=== PATIENT | female | born 1945 | race Caucasian/White ===

== ENCOUNTER → 2016-11-13 | Day surgery (SDC) | payer OTHER ==
--- NOTE | 2016-11-13 18:03 | IR ---
Imaging-Guided Peripherally Inserted Central Catheter History: Central line access for chemotherapy. Prophylactic Antibiotic: Cefazolin was not ordered and administered for antimicrobial prophylaxis be cause it was not medically necessary for this procedure. VTE Prophylaxis: There is not an order for VTE prophylaxis to be given within 24 hours after procedu re end time because it was not medically necessary for this procedure. Crosscutting Measure: Patient's current list of medications including all known prescriptions, over- the-counters, herbals, and vitamin/mineral/dietary supplements are reviewed. Medications' name, dosa ge, frequency, and route of administration are confirmed. Technique: Following informed consent, the right arm was prepped and draped in sterile fashion. 1% Xy locaine was used for local anesthetic. All elements of maximal sterile barrier technique including cap, mask, sterile gown, sterile gloves, large sterile sheet, hand hygiene, and 2% chlorhexidine for cutaneous antisepsis, followed. Ultrasound evaluation of potential access site was performed. After successfully identifying a patent vessel, ultrasound guidance was used to puncture the vein. A permanent recording was created for the patient's record. Ultrasound transducer was placed in sterile sleeve and used for real-time imaging guidance over steri le gel to enter the basilic vein. 0.018 measuring wire was passed centrally under fluoroscopic contro l. A skin kelechi with scalpel blade was followed by removing the access needle. A 5 Ecuadorean peel-away sh eath was followed by a 5 Ecuadorean single-lumen central catheter, trimmed to 42 cm length.. The tip of the catheter was positioned centrally and the guidewire removed. A single fluoroscopic spot image wa s obtained in inspiration. The hub of the catheter was fixed to the skin using a sterile StatLock adh esive device, and a sterile dressing was applied. The catheter was irrigated. Findings: The tip of the central catheter terminates at the junction of the superior vena cava and th e right atrium. Fluoroscopy: 0.6 minutes, 1 images Impression: 5 Ecuadorean double lumen peripherally inserted central catheter is ready to use.
== END | disposition home or self-care (01) ==
LOC: FIMAGING 12:27
PROVIDERS: ATTEND Internal Medicine Hematology & Oncology
PROC: 02HV33Z Insertion of Infusion Device into Superior Vena Cava, Percutaneous Approach (ICD-10-PCS; principal; 2016-11-13)
DX: C25.1 Malignant neoplasm of body of pancreas (principal)
CPT/HCPCS: 36569; 77001; C1751

== ENCOUNTER 2016-11-24 21:38 | Emergency (ER) | payer OTHER ==
--- NOTE | 2016-11-24 22:01 | EDPHY ---
H & P Stated Complaint: general pain after chemo today head abd and back HPI/ROS: HPI CHIEF COMPLAINT: Abdominal pain, nausea, vomiting HISTORY OF PRESENT ILLNESS: This patient very pleasant 71-year-old female, she has significant past medical history for pancreatic cancer, she is undergoing chemotherapy, she is followed by Dr. Mo. She presents emergency room with pain all over body specifically her head, right arm, abdomen. Patient tells me she has had persistent nausea vomiting today after chemotherapy. She tells me that she got chemotherapy earlier this morning once she got home around noon she started having nausea with persistent vomiting. She does complain of lower abdominal pain. She denies chest pain or shortness of breath. Denies fever. Denies bilious vomiting or hematemesis. She does tell me she is constipated. Past Medical History: Pancreatic CA undergoing chemotherapy Past Surgical History: right arm PICC line Social History: denies use of drugs alcohol tobacco products Family History: noncontributory ROS REVIEW OF SYSTEMS: A comprehensive 10 point review of systems is otherwise negative aside from elements mentioned in the history of present illness. Exam Constitutional appears well nontoxic,triage nursing summary reviewed, vital signs reviewed, awake/alert. Eyes normal conjunctivae and sclera, EOMI, PERRLA. HENT normal inspection, atraumatic, moist mucus membranes, no epistaxis, neck supple/ no meningismus, no raccoon eyes. Respiratory clear to auscultation bilaterally, normal breath sounds, no respiratory distress, no wheezing. Cardiovascular rate normal, regular rhythm, no murmur, no edema, distal pulses normal. Gastrointestinal soft, mild tenderness palpation lower abdomen, no rebound, no guarding, normal bowel sounds, no distension, no pulsatile mass. Genitourinary no CVA tenderness. Musculoskeletal no midline vertebral tenderness, full range of motion, no calf swelling, no tenderness of extremities, no meningismus, good pulses, neurovascularly intact. Skin pink, warm, & dry, no rash, skin atraumatic. Neurologic awake, alert and oriented x 3, AAOx3, moves all 4 extremities equally, motor intact, sensory intact, CN II-XII intact, normal cerebellar, normal vision, normal speech. Psychiatric normal mood/affect. Heme/Lymph/Immune no lymphadenopathy. Differential diagnosis includes but is not limited to and in no particular order : Acute nausea vomiting from chemotherapy, dehydration, electrolyte abnormality , colitis, diverticulitis, intra-abdominal abscess, Bowel obstruction, appendicitis, gallbladder disease, diverticulitis, , enteritis, perforated viscus, gastritis, GERD, esophagitis, urinary tract infection, pyelonephritis, kidney stones Medical Decision Making: This patient will be given a fluid bolus 1 L normal saline, 4 mg Zofran for nausea 1 mg IV Dilaudid. Obtain blood work, she will need a CT scan of her abdomen pelvis with IV contrast. We will access her right PICC line. Re-evaluation: CT scan of the abdomen pelvis with IV contrast The results of the study are this shows pancreatic mass, and 2 liver lesions, constipation no evidence of acute inflammatory process or obstruction The study was read by Dr. Reis I viewed the images myself on the PACS system. 1209: re-examination at this time patient is getting her 2nd L of normal saline. Her pain is improved after IV Dilaudid and nausea improved after Zofran however she did have a little bit more nausea and I have ordered her Phenergan. We will re-evaluate her after fluids. 0218: re-examination at this time she is resting comfortably she is afebrile her vital signs are reviewed and normal. She feels much better after IV fluids. Her pain is well controlled with IV Dilaudid, Zofran and Phenergan for nausea. Blood work and CT been reviewed no indication she has an infection or septic. She is not vomiting here. Her pain all over body is greatly improved. She would like to go home I think this is reasonable she does understand to return to the emergency room if she has any worsening symptoms questions or concerns includes worsening abdominal pain, fever, vomiting. I will allow her to go home with a take-home pack of Phenergan. [address] Nathan Oncology who I did review the case with she is comfortable the patient going home. No further recommendations at this time. Source: Patient - Personal History Current Tetanus/Diphtheria Vaccine: Yes Current Tetanus Diphtheria and Acellular Pertussis (TDAP): Yes Tetanus Vaccine Date: 2008 - Medical/Surgical History Hx Asthma: No Hx Chronic Respiratory Disease: Yes Hx Diabetes: Yes Hx Cardiac Disease: No Hx Renal Disease: No Hx Cirrhosis: No Hx Alcoholism: No Hx HIV/AIDS: No Hx Splenectomy or Spleen Trauma: No Other PMH: DM type 2 / PANCREATIC CANCER/COPD/ SLEEP APNEA/ WITH BIPAP AT HOME PLEURAL EFFUSIONS 2014. HYSTERCTOMY 05/02. R TOTAL KNEE REPLACEMENT 2005. BILAT CATARACT SURG. - Social History Smoking Status: Never smoked Constitutional: Initial Vital Signs Temperature (C) 36.9 C 11/24/16 21:44 Heart Rate 93 11/24/16 21:44 Respiratory Rate 20 11/24/16 21:44 Blood Pressure 119/72 11/24/16 21:44 O2 Sat (%) 91 L 11/24/16 21:44 O2 Delivery Mode Room Air O2 (L/minute) 3 Allergies/Adverse Reactions: No Known Allergies Allergy (Verified 09/27/16 16:04) Home Medications: Medication Instructions Recorded Losartan/Hydrochlorothiazide 1 each PO DAILY 03/31/16 [Losartan-Hctz 100-25 mg Tab] Metoprolol Succinate Xr [Toprol Xl 50 mg PO DAILY 03/31/16 50 mg (*)] Multivitamins [Multivitamin (*)] 1 each PO DAILY 03/31/16 Omeprazole 40 mg PO DAILY 03/31/16 Pravastatin Sodium [Pravachol] 10 mg PO HS 03/31/16 Venlafaxine HCl [Venlafaxine 75MG 75 mg PO BID 03/31/16 (*)] Ondansetron Odt [Zofran Odt 4 mg 4 mg PO Q4PRN PRN #10 tab 09/26/16 (*)] Formoterol Fumarate Dihyd,Micr 1 inh NEB BID 09/27/16 [Formoterol Fumarate] Gabapentin [Neurontin 100 MG (*)] 100 mg PO TID #90 cap 10/01/16 HYDROmorphone HCL [Dilaudid 2 mg 2 - 4 mg PO Q6H PRN #45 tab 10/02/16 (*)] Sennosides 8.6 mg PO DAILY #30 tablet 10/02/16 Insulin Glargine [Lantus 100 20 units SC HS #0 ml 10/03/16 UNITS/ML (*)] morphINE SR [Ms Contin/Oramorph 15 15 mg PO BID #60 tab 10/03/16 mg (*)] Medical Decision Making - Data Points Laboratory Results: Laboratory Results 11/24/16 22:30 11/24/16 22:30 11/25/16 11/24/16 11/24/16 01:35 23:58 22:30 WBC 5.00 10^3/uL (3.80-9.50) RBC 3.28 L 10^6/uL (4.18-5.33) Hgb 9.6 L g/dL (12.6-16.3) Hct 29.6 L % (38.0-47.0) MCV 90.2 fL (81.5-99.8) MCH 29.3 pg (27.9-34.1) MCHC 32.4 g/dL (32.4-36.7) RDW 14.1 % (11.5-15.2) Plt Count 68 L 10^3/uL (150-400) MPV 10.0 fL (8.7-11.7) Neut % (Auto) 92.2 H % (39.3-74.2) Lymph % (Auto) 5.4 L % (15.0-45.0) [place] % (Auto) 1.8 L % (4.5-13.0) Eos % (Auto) 0.0 L % (0.6-7.6) Baso % (Auto) 0.0 L % (0.3-1.7) Nucleat RBC Rel Count 0.0 % (0.0-0.2) Absolute Neuts (auto) 4.61 10^3/uL (1.70-6.50) Absolute Lymphs (auto) 0.27 L 10^3/uL (1.00-3.00) Absolute Monos (auto) 0.09 L 10^3/uL (0.30-0.80) Absolute Eos (auto) 0.00 L 10^3/uL (0.03-0.40) Absolute Basos (auto) 0.00 L 10^3/uL (0.02-0.10) Absolute Nucleated RBC 0.00 10^3/uL (0-0.01) Immature Gran % 0.6 % (0.0-1.1) Immature Gran # 0.03 10^3/uL (0.00-0.10) PT 14.8 SEC (12.0-15.0) INR 1.16 (0.83-1.16) APTT 23.9 SEC (23.0-38.0) VBG Lactic Acid 2.0 D mmol/L 2.6 H mmol/L (0.7-2.1) (0.7-2.1) Sodium 137 mEq/L (134-144) Potassium 4.4 mEq/L (3.5-5.2) Chloride 103 mEq/L (97-110) Carbon Dioxide 24 mEq/l (22-31) Anion Gap 10 mEq/L (8-16) BUN 14 mg/dL (7-23) Creatinine 0.6 mg/dL (0.6-1.0) Estimated GFR > 60 Glucose 296 H mg/dL (70-100) Calcium 8.4 L mg/dL (8.5-10.4) Total Bilirubin 0.6 D mg/dL (0.1-1.4) Conjugated Bilirubin 0.3 mg/dL (0.0-0.5) Unconjugated Bilirubin 0.3 mg/dL (0.0-1.1) AST 45 IU/L (14-46) ALT 45 IU/L (9-52) Alkaline Phosphatase 84 IU/L (38-126) Total Protein 5.6 L g/dL (6.3-8.2) Albumin 3.0 L g/dL (3.5-5.0) Lipase 32.0 IU/L (23-300) Medications Given: Discontinued Medications Hydromorphone HCl (Dilaudid) 1 mg IVP EDNOW ONE Stop: 11/24/16 22:08 Last Admin: 11/24/16 22:25 Dose: 1 mg Hydromorphone HCl (Dilaudid) 0.5 mg IVP EDNOW ONE Stop: 11/25/16 00:11 Last Admin: 11/25/16 00:20 Dose: 0.5 mg Sodium Chloride (Ns) 1,000 mls @ 0 mls/hr IV ONCE ONE PRN Reason: Wide Open Stop: 11/24/16 22:08 Last Admin: 11/24/16 22:25 Dose: 1,000 mls Sodium Chloride (Ns) 1,000 mls @ 0 mls/hr IV ONCE ONE PRN Reason: Wide Open Stop: 11/24/16 23:48 Last Admin: 11/25/16 00:29 Dose: 1,000 mls Ondansetron HCl (Zofran) 4 mg IVP EDNOW ONE Stop: 11/24/16 22:08 Last Admin: 11/24/16 22:25 Dose: 4 mg Promethazine HCl (Phenergan Injection) 12.5 mg IVP ONCE ONE Stop: 11/25/16 00:03 Last Admin: 11/25/16 00:03 Dose: 12.5 mg Departure - Departure Disposition: Home, Routine, Self-Care Clinical Impression: Nausea and vomiting Qualifiers: Vomiting type: unspecified Vomiting Intractability: non-intractable Qualifier Code: (R11.2) Nausea with vomiting, unspecified Condition: Good Instructions: Dehydration (ED), Acute Nausea and Vomiting (ED) Additional Instructions: 1. return emergency room immediately if he develops worsening symptoms includes abdominal pain, fever, vomiting. Referrals: Jenny Moon PA [Primary Care Provider] - As per Instructions
[2016-11-24] MEDS ORDERED: HYDROmorphONE/DILAUDID 1 MG/ML SYR IVP ONE (22:07)
[2016-11-24] MEDS ORDERED: NS 1,000 ML IV ONE ×2 (22:07→23:47)
[2016-11-24] MEDS ORDERED: ONDANSETRON 4 MG/2 ML VIAL IVP ONE (22:07)
[2016-11-24 22:44] LABS: % IMMATURE GRANULYOCYTES 0.6 % (0.0-1.1); ABSOLUTE IMMATURE GRANULOCYTES 0.03 10^3/uL (0.00-0.10); ADD DIFF? NO; ADD MORPH? NO; ADD SCAN? NO; ATYPICAL LYMPHOCYTE FLAG 0 (0-99); FRAGMENT RBC FLAG 60 (0-99); HEMATOCRIT 29.6 % (38.0-47.0); HEMOGLOBIN 9.6 g/dL (12.6-16.3); LEFT SHIFT FLG 80 (0-99); LIPEMIA HEMOLYSIS FLAG 80 (0-99); MEAN CELL HEMOGLOBIN 29.3 pg (27.9-34.1); MEAN CELL HEMOGLOBIN CONCENTR. 32.4 g/dL (32.4-36.7); MEAN CELL VOLUME 90.2 fL (81.5-99.8); PLATELET CLUMPS FLAG 0 (0-99); PLATELET COUNT 68 10^3/uL (150-400); RED BLOOD CELL COUNT 3.28 10^6/uL (4.18-5.33); RED CELL DISTRIBUTION WIDTH 14.1 % (11.5-15.2)
[2016-11-24 22:52] LABS: APTT 23.9 SEC (23.0-38.0); INR 1.16 (0.83-1.16); PROTIME(PATIENT) 14.8 SEC (12.0-15.0)
[2016-11-24 22:57] LABS: ALANINE AMINOTRANSFERASE 45 IU/L (9-52); ALKALINE PHOSPHATASE 84 IU/L (38-126); ANION GAP 10 mEq/L (8-16); ASPARTATE AMINOTRANSFERASE 45 IU/L (14-46); BILIRUBIN,TOTAL 0.6 mg/dL (0.1-1.4); BILIRUBIN-CONJUGATED 0.3 mg/dL (0.0-0.5); BILIRUBIN-UNCONJUGATED 0.3 mg/dL (0.0-1.1); CALCIUM 8.4 mg/dL (8.5-10.4); CARBON DIOXIDE 24 mEq/l (22-31); CHLORIDE 103 mEq/L (97-110); CREATININE 0.6 mg/dL (0.6-1.0); GLOMERULAR FILTRATION RATE > 60; GLUCOSE 296 mg/dL (70-100); POTASSIUM 4.4 mEq/L (3.5-5.2); SODIUM 137 mEq/L (134-144); TOTAL PROTEIN 5.6 g/dL (6.3-8.2)
[2016-11-24] MEDS ORDERED: IOPAMIDOL (ISOVUE-300) 100 ML BTL IV ONE (23:23)
[2016-11-24] MEDS ORDERED: PROMETHAZINE HCL 25 MG/ML INJ ONE (23:45)
--- NOTE | 2016-11-24 23:57 | CT ---
CT Scan of the Abdomen and Pelvis (With Contrast) at 2331 hours History: Pancreatic cancer with worsening abdominal pain. Comparison: CT September 24, 2016 Technique: Axial computed tomographic images of the abdomen and pelvis were obtained with the unevent ful intravenous administration of 90 mL Isovue-300 contrast. No oral or rectal contrast which limits the study. Dose reduction techniques were utilized. CT Abdomen Findings: Lung bases: Interstitial lung disease at the lung bases without pleural effusion. Liver: 2 hepatic masses in the medial segment of the left lobe measuring 4 x 3 cm image 81 of series 4 and 2.2 x 2.2 cm consistent with metastasis. Biliary system: No obstruction. Spleen: Normal. Pancreas: Heterogenous hypodense pancreatic head mass measuring 4.5 x 4 cm increased in size since pr evious study, previously measuring 3.1 x 2.9 cm.. Pancreatic ductal dilation again noted. Adrenals: Normal. Kidneys: No obstruction or solid masses.. Abdominal Aorta: Moderate atherosclerotic aorta and iliac arteries without aneurysm. No bowel obstruction, ascites, or significant retroperitoneal lymphadenopathy. CT Pelvis Findings: Moderate stool throughout the colon consistent with constipation. No pelvic fluid collections. Degenerative lumbar spine without definite destructive osseous lesions. L4-L5 moderate central canal stenosis secondary to degenerative grade 1 anterolisthesis and bilateral facet arthropa thy. Impression: 1. Enlarging pancreatic head mass consistent with patient's known malignancy. 2. Enlarging hepatic metastasis. 3. Constipation. 4. Degenerative lumbar spine. Findings and recommendations discussed with Emergency Department physician, Gaston Roland MD at 2 350 hour, 11/24/2016. Final report concurs with initial preliminary interpretation.
[2016-11-25] MEDS ORDERED: PROMETHAZINE HCL 25 MG/ML INJ IVP ONE (00:02)
[2016-11-25] MEDS ORDERED: HYDROmorphONE/DILAUDID 1 MG/ML SYR IVP ONE (00:10)
[2016-11-25 00:38] VITALS: TEMP 99.3
[2016-11-25] MEDS ORDERED: PROMETHAZINE 25 MG PREPACK #4 BTL TAKEHOME ONE (02:20)
[2016-11-25 03:18] VITALS: BP 126/61; PULSE 74; RESP 18; O2SAT 93
[2016-11-25] MEDS ORDERED: HEPARIN PRESERV FREE 1 UNIT/1 ML 5 ML SYR IVP SCH (03:30)
== END 2016-11-25 03:16 | disposition home or self-care (01) ==
DX: R11.2 Nausea with vomiting, unspecified (principal); C25.9 Malignant neoplasm of pancreas, unspecified; E11.9 Type 2 diabetes mellitus without complications; J44.9 Chronic obstructive pulmonary disease, unspecified; Z79.4 Long term (current) use of insulin; Z92.21 Personal history of antineoplastic chemotherapy
CPT/HCPCS: 74177; 96361; 96374; 96375; 96376; 99285; J1170; J2405; J2550; Q9967

== ENCOUNTER 2017-01-08 17:20 | Inpatient (IN) | payer OTHER ==
--- NOTE | 2017-01-08 17:45 | EDPHY ---
H & P Stated Complaint: Sent to ED for eval ?mesenteric clot (CT done today) Time Seen by Provider: 01/08/17 17:40 HPI/ROS: CHIEF COMPLAINT: Blood clot HISTORY OF PRESENT ILLNESS: The patient is a 71 year old female with history of metastatic pancreatic cancer, who was sent here for blood clot found on CT. The patient had chemotherapy done 4 days ago. After the treatment she developed abdominal pain. She saw Dr. Babin and had a CT abdomen done that showed a nonocclusive clot in her superior mesenteric vein as well as a clot in the left common femoral vein. The patient reports pain to the left side of her abdomen that radiates to the center and into her breasts. This pain has increasingly worsened over the last 2 weeks. She has associated vomiting. She additionally notes pain with urination. She has recently had cold-like symptoms and seems to have an ongoing cough. She denies shortness of breath, palpitations, fever, or headache. REVIEW OF SYSTEMS: Aside from elements discussed in the HPI, a comprehensive 10-point review of systems was reviewed and is negative. PAST MEDICAL HISTORY: DM type II, Pancreatic cancer, COPD, Sleep apnea. PSH: Hysterectomy, Right total knee replacement, Bilateral cataract surgery SOCIAL HISTORY: No recent alcohol. VITAL SIGNS: Reviewed by me GENERAL: Slightly pale, complaining of abdominal pain. HEENT: Atraumatic. Eyes: No icterus, no injection. Mouth: dry mucous membranes. No erythema or lesions. Neck: supple with no adenopathy. LUNGS: Scattered wheezes. Coarse breath sounds. CARDIAC: Tachycardic,regular rhythm, no rubs, murmurs or gallops. ABDOMEN: Diffuse tenderness, worse in the upper quadrants. No guarding or rebound. BACK: No CVA tenderness. EXTREMITIES: Left foot in boot for compound fracture. Right lower extremity is normal. NEURO: Alert and oriented, grossly nonfocal. SKIN: Pale. Warm and dry. PSYCHIATRIC: Normal mentation, no agitation. Portions of this note were transcribed by a medical appointment clerk. I personally performed a history, physical exam, medical decision making, and confirmed accuracy of information the transcribed note. Source: Patient - Personal History Current Tetanus Diphtheria and Acellular Pertussis (TDAP): Yes Tetanus Vaccine Date: 2008 - Medical/Surgical History Hx Asthma: No Hx Chronic Respiratory Disease: Yes Hx Diabetes: Yes Hx Cardiac Disease: No Hx Renal Disease: No Hx Cirrhosis: No Hx Alcoholism: No Hx HIV/AIDS: No Hx Splenectomy or Spleen Trauma: No Other PMH: DM type 2 / PANCREATIC CANCER/COPD/ SLEEP APNEA/ WITH BIPAP AT HOME PLEURAL EFFUSIONS 2014. HYSTERCTOMY 05/02. R TOTAL KNEE REPLACEMENT 2005. BILAT CATARACT SURG. - Social History Smoking Status: Never smoked Constitutional: Initial Vital Signs Temperature (C) 36.4 C 01/08/17 17:22 Heart Rate 104 H 01/08/17 17:22 Respiratory Rate 20 01/08/17 17:22 Blood Pressure 130/70 H 01/08/17 17:22 O2 Sat (%) 91 L 01/08/17 17:22 O2 Delivery Mode Nasal Cannula O2 (L/minute) 4 Allergies/Adverse Reactions: No Known Allergies Allergy (Verified 09/27/16 16:04) Home Medications: Medication Instructions Recorded Metoprolol Succinate Xr [Toprol Xl 50 mg PO DAILY 03/31/16 50 mg (*)] Multivitamins [Multivitamin (*)] 1 each PO DAILY 03/31/16 Omeprazole 40 mg PO DAILY 03/31/16 Pravastatin Sodium [Pravachol] 10 mg PO HS 03/31/16 Venlafaxine HCl [Venlafaxine 75MG 75 mg PO BID 03/31/16 (*)] HYDROmorphone HCL [Dilaudid 2 mg 2 - 4 mg PO Q6H PRN #45 tab 10/02/16 (*)] Insulin Glargine [Lantus 100 20 units SC HS #0 ml 10/03/16 UNITS/ML (*)] Acetaminophen [Tylenol 325mg (*)] 325 mg PO Q6 PRN 01/08/17 Gabapentin [Neurontin 300 MG (*)] 300 mg PO TID 01/08/17 Ondansetron Odt [Zofran Odt 4 mg 8 mg PO Q4PRN PRN 01/08/17 (*)] Sennosides 8.6 mg PO DAILY PRN 01/08/17 morphINE SR [Ms Contin/Oramorph 15 30 mg PO TID 01/08/17 mg (*)] Medical Decision Making - Diagnostics EKG Interpretation: The 12 lead EKG was interpreted by myself. See tracemaster for interpretation: Nonspecific T wave changes in anterior leads. ST flattening in V2. New from previously. ED Course/Re-evaluation: I discussed the patient's CT scan with Dr. Vieyra and Dr. Dover. There is no clot in the visceral arteries. Positive thrombus in the left common femoral vein. Small nonocclusive clot in the superior mesenteric vein. Patient's labs are largely unremarkable. Patient is continuing to have abdominal pain. Plan to admit. 7:40 p.m.: I spoke to the hospitalist, the patient will be admitted to Dr. Castillo. 8:25 p.m.: The patient's pain has increased. I gave her 1mg Dilaudid IV. Differential Diagnosis: Differential diagnoses for the patient's symptom complex was considered including but not limited to new metastatic pancreatic cancer disease, pancreatitis, pancreatic abscess, bowel obstruction, superior mesenteric artery thrombus, deep venous thrombus, mesenteric vein thrombus. - Data Points Medications Given: Discontinued Medications Hydromorphone HCl (Dilaudid) 1 mg IVP ONCE ONE Stop: 01/08/17 20:22 Last Admin: 01/08/17 20:35 Dose: 1 mg Departure - Departure Disposition: [facility] Inpatient Acute Clinical Impression: Deep vein blood clot of left lower extremity Qualifiers: Affected thrombotic vein of extremity: femoral Chronicity: acute Qualified Code (s): I82.412 - Acute embolism and thrombosis of left femoral vein Abdominal pain Qualifiers: Abdominal location: upper abdomen, unspecified Qualified Code(s): R10.10 - Upper abdominal pain, unspecified Pancreatic cancer Qualifiers: Pancreatic malignancy location: unspecified Qualified Code(s): C25.9 - Malignant neoplasm of pancreas, unspecified Condition: Fair Report Scribed for: Lyn Gomez Report Scribed by: Zoraida Bui Date of Report: 01/08/17 Time of Report: 17:45
--- NOTE | 2017-01-08 17:50 | CPEKG ---
Heart Rate: 101 RR Interval: 594 P-R Interval: 120 QRSD Interval: 78 QT Interval: 396 QTC Interval: 514 P [place]: 74 QRS [place]: 29 T Wave [place]: -47 EKG Severity - ABNORMAL ECG - EKG Impression: SINUS TACHYCARDIA EKG Impression: NONSPECIFIC T ABNORMALITIES, ANTERIOR LEADS EKG Impression: PROLONGED QT INTERVAL Electronically Signed By: Lyn Gomez 08-Jan-2017 22:39:12
[2017-01-08 19:27] LABS: % IMMATURE GRANULYOCYTES 0.4 % (0.0-1.1); ABSOLUTE IMMATURE GRANULOCYTES 0.03 10^3/uL (0.00-0.10); ADD DIFF? NO; ADD MORPH? YES; ADD SCAN? NO; ATYPICAL LYMPHOCYTE FLAG 0 (0-99); FRAGMENT RBC FLAG 30 (0-99); HEMATOCRIT 28.1 % (38.0-47.0); HEMOGLOBIN 8.7 g/dL (12.6-16.3); LEFT SHIFT FLG 0 (0-99); LIPEMIA HEMOLYSIS FLAG 80 (0-99); MEAN CELL HEMOGLOBIN 28.3 pg (27.9-34.1); MEAN CELL VOLUME 91.5 fL (81.5-99.8); MEAN PLATELET VOLUME 9.7 fL (8.7-11.7); PLATELET CLUMPS FLAG 0 (0-99); PLATELET COUNT 288 10^3/uL (150-400); RED BLOOD CELL COUNT 3.07 10^6/uL (4.18-5.33)
[2017-01-08 19:51] LABS: INR 1.25 (0.83-1.16); PROTIME(PATIENT) 15.7 SEC (12.0-15.0)
[2017-01-08 19:54] LABS: ALANINE AMINOTRANSFERASE 36 IU/L (9-52); ALBUMIN 2.8 g/dL (3.5-5.0); ALKALINE PHOSPHATASE 136 IU/L (38-126); ANION GAP 8 mEq/L (8-16); ASPARTATE AMINOTRANSFERASE 38 IU/L (14-46); BILIRUBIN,TOTAL 0.6 mg/dL (0.1-1.4); BILIRUBIN-CONJUGATED 0.4 mg/dL (0.0-0.5); BILIRUBIN-UNCONJUGATED 0.2 mg/dL (0.0-1.1); CARBON DIOXIDE 27 mEq/l (22-31); CHLORIDE 99 mEq/L (97-110); CREATININE 0.5 mg/dL (0.6-1.0); GLOMERULAR FILTRATION RATE > 60; GLUCOSE 109 mg/dL (70-100); POTASSIUM 4.1 mEq/L (3.5-5.2); SODIUM 134 mEq/L (134-144); TOTAL PROTEIN 5.4 g/dL (6.3-8.2)
[2017-01-08 20:05] LABS: TROPONIN I < 0.012 ng/mL (0-0.034)
[2017-01-08 20:07] LABS: ELLIPTOCYTES 1+; HYPOCHROMIA 2+; MACROCYTES 1+; PLATELET ESTIMATE ADEQUATE (ADEQ); SCHISTOCYTES 2+
[2017-01-08] MEDS ORDERED: HYDROmorphONE/DILAUDID 2 MG/ML INJ IVP ONE (20:21)
[2017-01-08] MEDS ORDERED: SENNOSIDES 1 TAB PO PRN (21:46)
[2017-01-08] MEDS ORDERED: ONDANSETRON DISINTEGRATING 4 MG TAB PO PRN (21:46)
[2017-01-08] MEDS ORDERED: ACETAMINOPHEN 325 MG TAB PO PRN (21:48)
[2017-01-08] MEDS ORDERED: ZOLPIDEM TARTRATE 5 MG TAB PO PRN (21:48)
[2017-01-08] MEDS: morphINE SR 30 MG TAB PO SCH (22:13)
[2017-01-08] MEDS: GABAPENTIN 300 MG CAP PO SCH (22:13)
[2017-01-08] MEDS: HYDROmorphONE/DILAUDID 1 MG/ML SYR IVP PRN (22:26)
[2017-01-08] MEDS: ENOXAPARIN 80 MG/0.8 ML SYR SC SCH (22:28)
[2017-01-08] MEDS ORDERED: LOPERAMIDE HCL 2 MG CAP PO PRN (22:55)
[2017-01-08] MEDS ORDERED: DIPHENOXYLATE/ATROPINE LOMOTIL 1 TAB PO PRN (22:55)
[2017-01-08] MEDS: INSULIN GLARGINE 100 UNITS/ML SYRINGE SC SCH (23:06)
[2017-01-08] MEDS: ALTEPLASE 2 MG VIAL IVP PRN ×2 (23:06→23:08)
--- NOTE | 2017-01-08 23:50 | GHP ---
[f rep st] HISTORY AND PHYSICAL DATE OF ADMISSION: 01/08/2017 CHIEF COMPLAINT: Abdominal pain. HISTORY: The patient is 71-year-old woman with known metastatic pancreatic cancer. She was sent to the hospital from oncology clinic at this time with worsening abdominal pain. The patient has had some ongoing pain for a while, but just in the last week the pain has significantly increased on a d aily basis, finally getting to the point where she could not tolerate it. She has increased her patti n medicines, but without any improvement in control of her pain in the meantime. The patient denies nausea or vomiting, diarrhea or constipation. She denies any fever symptoms or urinary symptoms of concern. Her syndrome has not involved any chest pain or shortness of breath. REVIEW OF SYSTEMS: The patient has received chemotherapy earlier this week for her cancer, and as u sual, her stools are getting looser and she expects for a couple of days that she will have more ko quent stools. She has some other minor side effects from chemotherapy, but her review of systems is otherwise unrevealing with 10 systems reviewed. PAST MEDICAL HISTORY: Includes the pancreatic cancer diagnosed in September 2016, diabetes, sleep ap mahamed, hypertension. FAMILY MEDICAL HISTORY: Negative for any cancers. SOCIAL HISTORY: The patient lives in [place]. She uses no tobacco or alcohol. She has a daughter who is here with her now. MEDICATIONS: Home medicine list has been reconciled by the pharmacist, and I have reviewed this lis t and ordered appropriate medications. PHYSICAL EXAMINATION: GENERAL: The patient is wide awake, alert, attentive, talkative, normal ment ation. SKIN: Her skin is pale, but otherwise warm and dry. HEENT: Unremarkable. NECK: Has no m ass, adenopathy or goiter. RESPIRATIONS: Not labored, lungs are clear. HEART: Regular without fr iction rub or gallop. There is a 1/6 systolic murmur, crescendo decrescendo in nature. ABDOMEN: S oft and mildly distended without any palpable abnormalities. There is diffuse tenderness without gu arding or rebound. EXTREMITIES: Her upper and lower extremities are all warm and well perfused. H er right leg is in a cast from a recent ankle fracture. NEURO: The mental status is good. Speech and language function good. No focal weakness anywhere. LABORATORY DATA: So far includes a white blood count of 7000, hemoglobin 8.7 and platelets 288,000. Normal basic metabolic panel. On liver panel, she has an alk phos of 136, but normal transaminase s and bilirubin. Her albumin is low at 2.8. Troponin is normal. A CT scan of the abdomen was done at the [facility] earlier. This was reviewed he re today by our radiologist, and the findings include most specifically acute deep venous thrombosis in the left femoral vein and left superior mesenteric vein. The images are not available for me to review at this time. IMPRESSION: Acute abdominal pain. It is unclear whether this abdominal pain is related to her deep venous thromboses, or more likely due to her impending diarrheal illness after her recent chemother apy, or other related factors. She has no focal tenderness, no guarding or rebound, and apparently no inflammatory changes or abscesses on her CT scan done at [facility] today. At this point, it is reasonable to go ahead and treat her deep venous thromboses as this is necessary a nyway and see if this leads to any notable improvement. Additionally, will treat her chemotherapy r elated bowel symptoms. Will watch closely for any signs of developing, but this does not appear to be present at this time. PLANS: 1. Admit to the hospital. 2. Anticoagulation with Lovenox which is standard for cancer patients. 3. Management of her diarrhea with antidiarrheals and hydration as necessary. 4. DVT prophylaxis will be handled by her anticoagulation as above. /[id number]/MODL
[2017-01-09] MEDS: NS 1,000 ML IV SCH ×2 (03:00→16:43)
[2017-01-09] MEDS: HYDROmorphONE/DILAUDID 1 MG/ML SYR IVP PRN (05:10)
[2017-01-09 05:14] LABS: % IMMATURE GRANULYOCYTES 0.5 % (0.0-1.1); ABSOLUTE IMMATURE GRANULOCYTES 0.04 10^3/uL (0.00-0.10); ADD DIFF? NO; ADD MORPH? YES; ADD SCAN? NO; ATYPICAL LYMPHOCYTE FLAG 0 (0-99); FRAGMENT RBC FLAG 20 (0-99); HEMOGLOBIN 8.5 g/dL (12.6-16.3); LEFT SHIFT FLG 0 (0-99); LIPEMIA HEMOLYSIS FLAG 80 (0-99); MEAN CELL HEMOGLOBIN 29.1 pg (27.9-34.1); MEAN CELL HEMOGLOBIN CONCENTR. 31.5 g/dL (32.4-36.7); MEAN CELL VOLUME 92.5 fL (81.5-99.8); MEAN PLATELET VOLUME 9.4 fL (8.7-11.7); PLATELET CLUMPS FLAG 0 (0-99); PLATELET COUNT 284 10^3/uL (150-400); RED BLOOD CELL COUNT 2.92 10^6/uL (4.18-5.33)
[2017-01-09 05:37] LABS: RED CELL DISTRIBUTION WIDTH 21.9 % (11.5-15.2)
[2017-01-09 05:45] LABS: ANION GAP 8 mEq/L (8-16); CALCIUM 8.8 mg/dL (8.5-10.4); CARBON DIOXIDE 23 mEq/l (22-31); CHLORIDE 103 mEq/L (97-110); CREATININE 0.5 mg/dL (0.6-1.0); GLOMERULAR FILTRATION RATE > 60; GLUCOSE 85 mg/dL (70-100); SODIUM 134 mEq/L (134-144)
[2017-01-09 07:11] LABS: HYPOCHROMIA 1+; MACROCYTES 1+; POLYCHROMASIA 1+
[2017-01-09 07:12] LABS: ELLIPTOCYTES 1+; PLATELET ESTIMATE ADEQUATE (ADEQ)
[2017-01-09] MEDS ORDERED: ENOXAPARIN 40 MG/0.4 ML SYR SC SCH (09:00)
[2017-01-09] MEDS: MULTIVITAMINS 1 EACH TAB PO SCH (09:34)
[2017-01-09] MEDS: GABAPENTIN 300 MG CAP PO SCH ×3 (09:34→21:36)
[2017-01-09] MEDS: METOPROLOL SUCCINATE XR 50 MG TAB PO SCH (09:34)
[2017-01-09] MEDS: VENLAFAXINE HCL 75 MG TAB PO SCH ×2 (09:35→20:49)
[2017-01-09] MEDS: PANTOPRAZOLE SODIUM 40 MG TAB PO SCH (09:35)
[2017-01-09] MEDS: ENOXAPARIN 80 MG/0.8 ML SYR SC SCH (09:35)
[2017-01-09] MEDS: morphINE SR 30 MG TAB PO SCH ×3 (09:35→21:37)
[2017-01-09] MEDS: HYDROmorphONE/DILAUDID 4 MG TAB PO PRN ×2 (12:03→17:53)
--- NOTE | 2017-01-09 12:51 | GCON ---
[f rep st] CONSULTATION HEME-ONC CONSULTATION REASON FOR ADMISSION: Worsening abdominal pain. HISTORY OF PRESENT ILLNESS: The patient was admitted yesterday with a history of known metastatic p ancreatic cancer with liver metastases, who had much worsening abdominal pain. She was sent to the emergency room for evaluation; however, she had a CAT scan performed in the clinic on 01/08 which re vealed that she has the new onset of mesenteric vein thrombosis. For that reason, she was admitted for anticoagulation and management of the pain. This morning the pain is improved, but she does hav e some ongoing problems with nausea and vomiting. The patient's last CT reveals a 24 x 21 cm liver metastasis in the right lobe of the liver and a 52 x 51 cm mass in the body of the pancreas, but the re is a clear-cut mesenteric vein thrombosis on the scan. This film compared to the CT scan at [facility] on 11/23 revealed that the scan was 31 x 26 cm in the right lobe of the liver and the mass in the head of the pancreas is around 57 x 35 mm. So all told there is not any dramat ic change in the mass in either way, and so this is probably just a complication of the cancer with a mesenteric vein thrombosis. The patient, prior to diagnosis, was living at her home in [place], but [facility] [place]. The patient's daughter works as a veterinary practitioner. She is also complaining of some vomiting and early satiety, probably related to the mass. She was admitted in October along with a fracture in her left foot from a fall, not due to a periphe ral neuropathy but related to just tripping and required surgery. She still has a cast on and is sl owly recovering. Prior to this, she has had some comorbidities which are significant. She has had type 2 diabetes. She has had poor physical conditioning and obesity. She is a never smoker. She had prior surgery with cataract surgery, T and A, appendectomy, a total knee replacement, a ANGELES with BSO. FAMILY HISTORY: Really unremarkable. Her father at 75 of an OH. Her mother at age 74 of CHF but had a diagnosis "ovarian cancer" at age 39. The patient has 4 siblings. One sister a t age 61 of breast cancer and also had ovarian cancer. Another sister was born in 1951 and is healt hy. Brother born in is healthy and another brother born in has diabetes. She is s munira 1990 and has 4 children (names in chart). 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 She is a nondrin ker and nonsmoker. REVIEW OF SYSTEMS: Shows her weight is relatively stable. CLINICAL EXAM: Unremarkable. She is smiling and appears to be improved from previous reports. She has no scleral icterus. No cervical adenopathy. The lungs are clear to P and A. CV: S1 normal, S2 normally split. There is no S3, S4 or murmur. Her abdomen today is mildly tender in the epigast rium. The breast exam is free of focal masses, and there is no extremity edema or calf tenderness. ALLERGIES: I should mention that she has no known drug allergies. MEDICATIONS: Prior to admission, she had Dilaudid for pain, gabapentin 300 mg p.o. three times dutch y for peripheral neuropathy, MS Contin 30 mg q.12 hours. She also had ondansetron 8 mg p.o. p.r.n. She also is on 20 units of insulin, 1000 mg p.o. b.i.d. of metformin, and also metoprolol 50 mg gio ly for hypertension. Pravastatin was at a dose of 10 mg daily, stool softeners, and venlafaxine 75 mg p.o. b.i.d. ASSESSMENT: Mesenteric vein thrombosis. RECOMMENDATIONS: I am recommending that she be treated on rivaroxaban, which is Xarelto, initially at 15 mg p.o. b.i.d. and then 20 mg daily after 3 weeks. We will discuss her further treatment of h er cancer as an outpatient. /[id number]/MODL
--- NOTE | 2017-01-09 16:18 | HOSPPROG ---
Hospitalist Progress Note Assessment/Plan: 71 yo F w metastatic pancreatic CA here w abdominal pain, mesenteric vein thrombosis mesenteric vein thrombosis: started on NoAC nontender exam abdominal pain: reasonably attributable to above ekg w no ischemia pancreatic CA: outpt follow up for chemotherapy proph: anticoagulated diarrhea: mild, 2/2 chemo follow dispo: inpatient Subjective: case d/w dr abdalla. ekg (interp by me)- no ischemic changes Objective: Vital Signs Temp Pulse Resp BP Pulse Ox 36.6 C 96 18 154/77 H 99 01/09/17 15:59 01/09/17 15:59 01/09/17 15:59 01/09/17 15:59 01/09/17 15:59 Laboratory Results 01/09/17 05:00 01/09/17 05:00 01/08/17 01/09/17 01/10/17 05:59 05:59 05:59 Intake Total 800 Output Total 501 350 Balance 299 -350 PT 15.7 SEC (12.0-15.0) H 01/08/17 19:16 INR 1.25 (0.83-1.16) H 01/08/17 19:16 - Physical Exam Constitutional: no apparent distress, chronically ill appearing Eyes: PERRL, anicteric sclera Ears, Nose, Mouth, Throat: moist mucous membranes, hearing normal Cardiovascular: regular rate and rhythym, no murmur, rub, or gallop, No tachycardia Respiratory: no respiratory distress, no rales or rhonchi Gastrointestinal: normoactive bowel sounds, soft, non-tender abdomen, No guarding, No rebound Genitourinary: no bladder fullness, No dempsey in urethra Skin: warm, normal color Musculoskeletal: full muscle strength, no muscle tenderness Neurologic: AAOx3, sensation intact bilaterally Psychiatric: interacting appropriately Lymph, Heme, Immunologic: no cervical LAD ICD10 Worksheet Patient Problems: Problems Problem Status Onset Abdominal pain Acute Deep vein blood clot of left lower extremity Acute Pancreatic cancer Acute Abdominal pain Acute Pancreatic cancer Acute Postop check Acute Urinary tract infection Acute
[2017-01-09] MEDS: METOCLOPRAMIDE 10 MG TAB PO SCH ×3 (16:34→20:49)
[2017-01-09] MEDS: RIVAROXABAN 15 MG TAB PO SCH (17:54)
[2017-01-09] MEDS: INSULIN GLARGINE 100 UNITS/ML SYRINGE SC SCH (20:50)
[2017-01-09] MEDS ORDERED: PRAVASTATIN SODIUM 10 MG TAB PO SCH (21:00)
[2017-01-10] MEDS: HYDROmorphONE/DILAUDID 4 MG TAB PO PRN ×2 (03:59→10:20)
[2017-01-10] MEDS: NS 1,000 ML IV SCH (04:01)
[2017-01-10] MEDS: METOCLOPRAMIDE 10 MG TAB PO SCH ×2 (08:04→11:02)
[2017-01-10] MEDS: METOPROLOL SUCCINATE XR 50 MG TAB PO SCH (08:04)
[2017-01-10] MEDS: GABAPENTIN 300 MG CAP PO SCH (08:04)
[2017-01-10] MEDS: RIVAROXABAN 15 MG TAB PO SCH (08:04)
[2017-01-10] MEDS: VENLAFAXINE HCL 75 MG TAB PO SCH (08:05)
[2017-01-10] MEDS: morphINE SR 30 MG TAB PO SCH (08:05)
[2017-01-10] MEDS: PANTOPRAZOLE SODIUM 40 MG TAB PO SCH (08:05)
[2017-01-10] MEDS: MULTIVITAMINS 1 EACH TAB PO SCH (08:05)
--- NOTE | 2017-01-10 08:44 | SOAPPROG ---
SOAP Progress Note Assessment/Plan: Assessment: 1. Metastatic pancreatic cancer: She has stable disease on Abraxane/gem. She is doing ok. 2. 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 She will be on xeralto 15 mg BID for 3 weeks and then 20 mg daily ad infinitum. She was due for chemo tomorrow. We'll delay till of this week. No N/V. Looks ok. home today? Plan: 01/10/17 08:36 Subjective: Rachel is a 71 yo F with metastatic pancreatic cancer. She is DNR. she came in with abd pain due to mesenteric vein thrombosis. she is better today. no n/v Objective: Vital Signs Temp Pulse Resp BP Pulse Ox 36.8 C 98 19 136/81 H 94 01/10/17 07:07 01/10/17 08:04 01/10/17 07:07 01/10/17 08:04 01/10/17 07:07 Laboratory Results 01/09/17 05:00 01/09/17 05:00 01/09/17 01/10/17 01/11/17 05:59 05:59 05:59 Intake Total 800 2308 Output Total 501 1500 900 Balance 299 808 -900 PT 15.7 SEC (12.0-15.0) H 01/08/17 19:16 INR 1.25 (0.83-1.16) H 01/08/17 19:16 Alert and pleasant Neck neg' Lungs clear CVS neg Abd soft ICD10 Worksheet Patient Problems: Problems Problem Status Onset Postop check Acute Pancreatic cancer Acute Abdominal pain Acute Urinary tract infection Acute Deep vein blood clot of left lower extremity Acute Abdominal pain Acute Pancreatic cancer Acute
[2017-01-10 11:44] VITALS: BP 166/83; PULSE 102; RESP 18; TEMP 98.6; O2SAT 98
--- NOTE | 2017-01-10 13:00 | HOSPPROG ---
Hospitalist Progress Note Assessment/Plan: 71 yo F w metastatic pancreatic CA here w abdominal pain, mesenteric vein thrombosis mesenteric vein thrombosis: started on NoAC nontender exam abdominal pain: reasonably attributable to above ekg w no ischemia pancreatic CA: outpt follow up for chemotherapy proph: anticoagulated diarrhea: mild, 2/2 chemo follow dispo: inpatient > 30 minutes on dc Subjective: feels well. amenable to dc. case d/w dr abdalla Objective: Vital Signs Temp Pulse Resp BP Pulse Ox 37 C 102 H 18 166/83 H 98 01/10/17 11:42 01/10/17 11:42 01/10/17 11:42 01/10/17 11:42 01/10/17 11:42 Laboratory Results 01/09/17 05:00 01/09/17 05:00 01/09/17 01/10/17 01/11/17 05:59 05:59 05:59 Intake Total 800 2308 Output Total 501 1500 1600 Balance 299 808 -1600 PT 15.7 SEC (12.0-15.0) H 01/08/17 19:16 INR 1.25 (0.83-1.16) H 01/08/17 19:16 - Physical Exam Constitutional: no apparent distress, appears nourished Eyes: PERRL, anicteric sclera Ears, Nose, Mouth, Throat: moist mucous membranes, hearing normal Cardiovascular: regular rate and rhythym, no murmur, rub, or gallop Respiratory: no respiratory distress, no rales or rhonchi Gastrointestinal: soft, non-tender abdomen, No guarding, No rebound Genitourinary: No dempsey in urethra Skin: warm, normal color Musculoskeletal: full muscle strength, no muscle tenderness, normal joint ROM Neurologic: AAOx3 ICD10 Worksheet Patient Problems: Problems Problem Status Onset Abdominal pain Acute Deep vein blood clot of left lower extremity Acute Pancreatic cancer Acute Abdominal pain Acute Pancreatic cancer Acute Postop check Acute Urinary tract infection Acute
--- NOTE | 2017-01-10 15:29 | GDS ---
[f rep st] DISCHARGE SUMMARY DISCHARGE DIAGNOSES: 1. Metastatic pancreatic cancer. 2. Deep vein thrombosis in the left femoral vein, left superior mesenteric vein. 3. Chronic hypoxia, on home oxygen. 4. Diabetes. 5. Sleep apnea. CONSULTATION THIS ADMISSION: Oncology. HOSPITAL COURSE: Please see admission history and physical. The patient was admitted, was initiated on novel anticoagulation in the form of Xarelto. She tolera annamaria this well. She was improving. She was eating well. She had a soft abdominal exam. She was ne ither tachycardiac nor febrile. She had a normal serum lactate while here. She is discharged home today with a prescription for Xarelto. Her oxygen requirement is at its baseline. /[id number]/MODL
== END 2017-01-10 14:34 | disposition home or self-care (01) | DRG 300 ==
LOC: F1N 21:35 → OBSVTOIN 21:48
PROVIDERS: ADMIT Internal Medicine; ATTEND Internal Medicine
DX: I82.412 Acute embolism and thrombosis of left femoral vein (principal); C25.9 Malignant neoplasm of pancreas, unspecified; C78.7 Secondary malignant neoplasm of liver and intrahepatic bile duct; I82.890 Acute embolism and thrombosis of other specified veins; E11.9 Type 2 diabetes mellitus without complications; G47.30 Sleep apnea, unspecified; R09.02 Hypoxemia; J44.9 Chronic obstructive pulmonary disease, unspecified; R19.7 Diarrhea, unspecified; Z96.651 Presence of right artificial knee joint; Z80.3 Family history of malignant neoplasm of breast; Z80.41 Family history of malignant neoplasm of ovary
CPT/HCPCS: 96374; 97162-GP; 97166-GO; 97530-GP; J1170; J1650; J1815; J2997

== ENCOUNTER 2017-01-25 00:37 | Observation (INO) | payer OTHER ==
[2017-01-25] MEDS ORDERED: ONDANSETRON DISINTEGRATING 4 MG TAB PO PRN ×2 (03:15→14:54)
[2017-01-25] MEDS ORDERED: morphINE SR 30 MG TAB PO ONE (03:19)
[2017-01-25] MEDS ORDERED: PROTOCOL MAGNESIUM 1 DOSE IV PRN (03:20)
[2017-01-25] MEDS ORDERED: POTASSIUM CL 20 MEQ/15 ML UDCUP PO ONE (03:20)
[2017-01-25] MEDS ORDERED: PROTOCOL POTASSIUM 1 DOSE MISC PRN (03:20)
[2017-01-25] MEDS ORDERED: D50W 25 GM/50 ML SYR IVP PRN (03:45)
--- NOTE | 2017-01-25 03:45 | PDGENHP ---
History and Physical - Chief Complaint abdominal pain - History of Present Illness Patient is a 71 year old female with HTN, DM2 and metastatic pancreatic cancer currently undergoing chemotherapy, complicated by mesenteric vein thrombosis now on systemic anticoagulation, who presented to the [place] ED with complaint of epigastric pain. Patient reports completing her 4th cycle of chemotherapy on 01/21, without significant adverse event. She did reports some intermittent constipation and diarrhea 3 or 4 days ago, however, on day of presentation she felt well. She has not had significant nausea or vomiting. She went to sleep at around 8pm and then was awoken suddenly by intense, sharp/ throbbing epigastric pain. She feels the pain was similar to her recent abdominal pain, but just increased in intensity. She notified her daughter of her symptoms and she was taken to the [place] ED for further evaluation. Patient denies any associated shortness of breath, palpitations or central chest pain; she also denies any recent fever, chills, headache, dizziness, cough , congestion or dysuria. On arrival to the [facility] ED, pt was afebrile, hemodynamically stable but slightly tachycardic (36.6C, 146/70, 112, 18, 97% on 3L NC). Labs revealed significant hypokalemia (K 2.9), mild pancytopenia, negative troponin. EKG showed sinus tachycardia without evidence of ischemia. She was given oral potassium supplementation and transferred to [facility] for admission and further management. History Information - Allergies/Home Medication List Allergies/Adverse Reactions: No Known Allergies Allergy (Verified 09/27/16 16:04) Home Medications: Metoprolol Succinate Xr [Toprol Xl 50 mg (*)] 50 mg PO DAILY 03/31/16 [Last Taken 01/07/17] Multivitamins [Multivitamin (*)] 1 each PO DAILY 03/31/16 [Last Taken 01/07/17] Omeprazole 40 mg PO DAILY 03/31/16 [Last Taken 01/07/17] Pravastatin Sodium [Pravachol] 10 mg PO HS 03/31/16 [Last Taken 01/07/17] Venlafaxine HCl [Venlafaxine 75MG (*)] 75 mg PO BID 03/31/16 [Last Taken 21:00] Acetaminophen [Tylenol 325mg (*)] 325 mg PO Q6 PRN 01/08/17 [Last Taken Unknown] Gabapentin [Neurontin 300 MG (*)] 300 mg PO TID 01/08/17 [Last Taken 01/07/17 21 :00] Ondansetron Odt [Zofran Odt 4 mg (*)] 8 mg PO Q4PRN PRN 01/08/17 [Last Taken ] Sennosides 8.6 mg PO DAILY PRN 01/08/17 [Last Taken Unknown] morphINE SR [Ms Contin/Oramorph 15 mg (*)] 30 mg PO TID 01/08/17 [Last Taken 12:00] I have personally reviewed and updated: family history, medical history, social history, surgical history - Past Medical History Additional medical history: pancreatic cancer, dx 09/2016, s/p 4th cycle of chemotherapy. Hypertension. Dm2, on insulin. mesenteric vein DVT, on xarelto. JESSICA on nocturnal O2 - Surgical History Additional surgical history: ANGELES and BSO. appendectomy. Total knee replacement. cataract repairs - Family History Positive for: non-pertinent - Social History Smoking Status: Never smoked Alcohol Use: None Drug Use: None Additional social history: Patient currently lives with her daughter Divine, uses a walker for ambulation. Review of Systems ROS: 10pt was reviewed & negative except for what was stated in HPI & below Physical Exam Temp Pulse Resp BP Pulse Ox 36.6 C 116 H 18 173/84 H 98 01/25/17 02:59 01/25/17 02:59 01/25/17 02:59 01/25/17 02:59 01/25/17 02:59 O2 (L/minute) 2 Constitutional: no apparent distress, appears nourished, not in pain Eyes: PERRL, anicteric sclera, EOMI Ears, Nose, Mouth, Throat: hearing normal, ears appear normal, no oral mucosal ulcers, dry mucous membranes Cardiovascular: regular rate and rhythym, no murmur, rub, or gallop, pulses symmetric bilaterally, No JVD, No edema Peripheral Pulses: 2+: dorsalis-pedis (R), dorsalis-pedis (L) Respiratory: no respiratory distress, no rales or rhonchi, clear to auscultation Gastrointestinal: normoactive bowel sounds, soft, non-tender abdomen, no palpable masses, tenderness (in epigastrum), No guarding, No rebound, No distension Genitourinary: no bladder fullness, no bladder tenderness Skin: warm, normal color, no rashes or abrasions, no fluctuance, no induration, other (PICC in RUE), No mottled Musculoskeletal: full muscle strength, no muscle tenderness, normal joint ROM, no joint effusions Neurologic: AAOx3, sensation intact bilaterally, CN II-XII Intact, No weakness, No numbness, No facial droop Psychiatric: interacting appropriately, not anxious, not encephalopathic, thought process linear Lab Data & Imaging Review 01/25/17 05:50 01/25/17 05:50 CBC: 3.3 > 7.4 / 23.7 < 103 BMP: 139 / 2.9 / 106 / 25 / 9 / 0.48 < 75 Ca 7.8 Troponin: <0.02 LFTs: TP 5 / Alb 2 / TB 0.6 / AST 67 / ALT 24 < ALP 337 Lipase: 78 PT/INR: 13.8 / 1.4 Visualized and Interpreted EKG results: Yes EKG Interpretation: Positive for: normal sinsus rhythm (sinus tachycardia without st/twave changes) Assessment & Plan Assessment: Patient is a 71 year old female with metastatic pancreatic ca, complicated by mesenteric vein DVT who presented to the [place] ED with acute onset epigastric pain. ED evaluation revealed hypokalemia and she was transferred to [facility] for correction of her electrolyte abnormalities and symptom control. Plan: # abdominal pain Patient reports recent constipation, alternating with diarrhea, but had normal BMs yesterday and today. Abdominal exam is unremarkable on today's presentation and LFTs/lipase are at patient's baseline. Patient feels pain is similar to her chronic pain related to her malignancy. Will hold off on additional imaging at this time unless symptoms or exam worsen. Will check lactic acid to rule abdominal ischemia, and also monitor cardiac enzymes and ekg to rule out cardiac etiology. Cont home pain regimen with IV dilaudid prn. # hypokalemia This appears to be a new problem, may be related to her chemotherapy regimen. She denies any significant vomiting or diarrhea. EKG does not show any changes related to electrolyte abnormality. Will place on telemetry monitoring and electrolyte protocol and replete as needed. # pancytopenia All cell counts are down from previous levels, likely related to her chemotherapy. No indication for transfusion at this time and no evidence of bleeding, so will continue xarelto, monitoring CBC closely. # metastatic pancreatic cancer S/p chemotherapy on 01/21. # mesenteric vein DVT Cont xarelto. # hypertension BP slightly elevated on presentation, likely related to acute pain. Will control pain and restart home meds. # DM2 Glucose low-normal on EVA labs. WIll monitor FS TIDAC and continue home insulin regimen. # JESSICA Nocturnal O2 prn. # dispo: admit to observation status for correction of electrolyte abnormalities # gen: diabetic diet DVt ppx: on xarelto Full code
[2017-01-25] MEDS ORDERED: POTASSIUM CL 20 MEQ/15 ML UDCUP ONE (03:51)
[2017-01-25 05:59] LABS: % IMMATURE GRANULYOCYTES 0.4 % (0.0-1.1); ABSOLUTE IMMATURE GRANULOCYTES 0.01 10^3/uL (0.00-0.10); ADD DIFF? NO; ADD MORPH? YES; ADD SCAN? NO; ATYPICAL LYMPHOCYTE FLAG 0 (0-99); FRAGMENT RBC FLAG 40 (0-99); LEFT SHIFT FLG 10 (0-99); LIPEMIA HEMOLYSIS FLAG 80 (0-99); MEAN CELL HEMOGLOBIN 30.3 pg (27.9-34.1); MEAN CELL VOLUME 94.8 fL (81.5-99.8); MEAN PLATELET VOLUME 10.7 fL (8.7-11.7); PLATELET CLUMPS FLAG 10 (0-99); PLATELET COUNT 94 10^3/uL (150-400); RED BLOOD CELL COUNT 2.11 10^6/uL (4.18-5.33)
[2017-01-25] MEDS: HYDROmorphONE/DILAUDID 1 MG/ML SYR IVP PRN ×3 (06:00→16:30)
[2017-01-25 06:01] LABS: HEMOGLOBIN 6.4 g/dL (12.6-16.3); RED CELL DISTRIBUTION WIDTH 22.7 % (11.5-15.2)
[2017-01-25 06:08] LABS: APTT 38.4 SEC (23.0-38.0); INR 1.42 (0.83-1.16); PROTIME(PATIENT) 17.3 SEC (12.0-15.0)
[2017-01-25 06:39] LABS: ELLIPTOCYTES 1+
[2017-01-25 06:48] LABS: ALANINE AMINOTRANSFERASE 39 IU/L (9-52); ALBUMIN 2.1 g/dL (3.5-5.0); ALKALINE PHOSPHATASE 350 IU/L (38-126); ANION GAP 1 mEq/L (8-16); ASPARTATE AMINOTRANSFERASE 50 IU/L (14-46); BILIRUBIN,TOTAL 0.5 mg/dL (0.1-1.4); CALCIUM 8.1 mg/dL (8.5-10.4); CARBON DIOXIDE 26 mEq/l (22-31); CHLORIDE 108 mEq/L (97-110); CREATININE 0.4 mg/dL (0.6-1.0); GLOMERULAR FILTRATION RATE > 60; GLUCOSE 57 mg/dL (70-100); HYPOCHROMIA 1+; LARGE PLATELETS PRESENT; MAGNESIUM 1.8 mg/dL (1.6-2.3); MICROCYTES 1+; PLATELET ESTIMATE DECREASED (ADEQ); POTASSIUM 4.1 mEq/L (3.5-5.2); SCHISTOCYTES 1+; SODIUM 135 mEq/L (134-144); TOTAL PROTEIN 4.3 g/dL (6.3-8.2)
[2017-01-25 06:55] LABS: CREATINE KINASE-MB FRACTION 0.25 ng/mL (0-3.19); TROPONIN I < 0.012 ng/mL (0-0.034)
[2017-01-25] MEDS: ACETAMINOPHEN 325 MG TAB PO PRN ×2 (08:03→18:37)
[2017-01-25] MEDS: ONDANSETRON 4 MG/2 ML VIAL IVP PRN ×3 (08:12→16:30)
[2017-01-25] MEDS: INSULIN LISPRO 100 UNIT/ML SC SCH ×3 (08:13→18:01)
[2017-01-25] MEDS ORDERED: MAGNESIUM SULF 1 GM/DEXTROSE 100 ML IV ONE (08:54)
[2017-01-25] MEDS ORDERED: SENNOSIDES 1 TAB PO PRN (14:54)
[2017-01-25] MEDS: GABAPENTIN 300 MG CAP PO SCH ×2 (15:32→21:08)
[2017-01-25] MEDS: morphINE SR 30 MG TAB PO SCH ×2 (15:33→21:08)
[2017-01-25] MEDS: POLYETHYLENE GLYCOL 3350 17 GM PKT PO SCH (15:33)
--- NOTE | 2017-01-25 15:42 | CPEKG ---
Heart Rate: 81 RR Interval: 741 P-R Interval: 120 QRSD Interval: 82 QT Interval: 356 QTC Interval: 414 P [place]: 43 QRS [place]: 28 T Wave [place]: 3 EKG Severity - ABNORMAL ECG - EKG Impression: SINUS RHYTHM EKG Impression: PROBABLE INFERIOR INFARCT, AGE INDETERMINATE EKG Impression: CONSIDER POSTERIOR WALL INVOLVEMENT Electronically Signed By: Hossein Lott 26-Jan-2017 16:56:32
[2017-01-25 16:10] LABS: ANION GAP 2 mEq/L (8-16); CALCIUM 8.3 mg/dL (8.5-10.4); CARBON DIOXIDE 28 mEq/l (22-31); CHLORIDE 105 mEq/L (97-110); CREATININE 0.4 mg/dL (0.6-1.0); GLOMERULAR FILTRATION RATE > 60; GLUCOSE 83 mg/dL (70-100); POTASSIUM 3.8 mEq/L (3.5-5.2); SODIUM 135 mEq/L (134-144)
[2017-01-25] MEDS: RIVAROXABAN 15 MG TAB PO SCH (17:58)
[2017-01-25 18:38] LABS: POTASSIUM 3.2 mEq/L (3.5-5.2)
[2017-01-25 19:16] LABS: POTASSIUM 4.2 mEq/L (3.5-5.2)
[2017-01-25] MEDS ORDERED: PRAVASTATIN SODIUM 10 MG TAB PO SCH (21:00)
[2017-01-25] MEDS ORDERED: INSULIN GLARGINE 100 UNITS/ML SYRINGE SC SCH (21:00)
[2017-01-25] MEDS: VENLAFAXINE HCL 75 MG TAB PO SCH (21:08)
[2017-01-25] MEDS: HYDROmorphONE/DILAUDID 2 MG TAB PO PRN (21:09)
[2017-01-25] MEDS: METOCLOPRAMIDE 10 MG TAB PO PRN (21:09)
[2017-01-26 04:32] LABS: CALCIUM 8.4 mg/dL (8.5-10.4); CARBON DIOXIDE 25 mEq/l (22-31); CHLORIDE 106 mEq/L (97-110); CREATININE 0.5 mg/dL (0.6-1.0); GLOMERULAR FILTRATION RATE > 60; GLUCOSE 70 mg/dL (70-100); MAGNESIUM 1.8 mg/dL (1.6-2.3); SODIUM 136 mEq/L (134-144)
[2017-01-26 04:39] LABS: ANION GAP 5 mEq/L (8-16); POTASSIUM 3.8 mEq/L (3.5-5.2)
[2017-01-26] MEDS: METOCLOPRAMIDE 10 MG TAB PO PRN (05:27)
[2017-01-26] MEDS: HYDROmorphONE/DILAUDID 2 MG TAB PO PRN (05:27)
[2017-01-26 05:54] LABS: HEMATOCRIT 24.3 % (38.0-47.0); HEMOGLOBIN 7.5 g/dL (12.6-16.3); MEAN CELL HEMOGLOBIN 29.1 pg (27.9-34.1); MEAN CELL HEMOGLOBIN CONCENTR. 30.9 g/dL (32.4-36.7); MEAN CELL VOLUME 94.2 fL (81.5-99.8); RED BLOOD CELL COUNT 2.58 10^6/uL (4.18-5.33)
[2017-01-26 05:56] LABS: RED CELL DISTRIBUTION WIDTH 23.9 % (11.5-15.2)
[2017-01-26] MEDS ORDERED: MAGNESIUM SULF 1 GM/DEXTROSE 100 ML IV ONE (08:15)
[2017-01-26] MEDS ORDERED: METOPROLOL SUCCINATE XR 50 MG TAB PO SCH (09:00)
[2017-01-26] MEDS ORDERED: MULTIVITAMINS 1 EACH TAB PO SCH (09:00)
[2017-01-26] MEDS ORDERED: PANTOPRAZOLE SODIUM 40 MG TAB PO SCH (09:00)
[2017-01-26] MEDS: INSULIN LISPRO 100 UNIT/ML SC SCH ×2 (09:02→13:32)
[2017-01-26] MEDS: POLYETHYLENE GLYCOL 3350 17 GM PKT PO SCH (09:09)
[2017-01-26] MEDS: GABAPENTIN 300 MG CAP PO SCH ×2 (09:09→15:48)
[2017-01-26] MEDS: VENLAFAXINE HCL 75 MG TAB PO SCH (09:10)
[2017-01-26] MEDS: RIVAROXABAN 15 MG TAB PO SCH (09:10)
[2017-01-26] MEDS: morphINE SR 30 MG TAB PO SCH ×2 (09:10→15:48)
[2017-01-26 12:01] VITALS: BP 131/67; PULSE 98; RESP 19; TEMP 98.6; O2SAT 96
--- NOTE | 2017-01-26 14:21 | HOSPPROG ---
Hospitalist Progress Note Assessment/Plan: 71 yo f w pancreatic ca and mesenteric vein thrombosis abdominal pain improved transfused home today see dc summary Subjective: feels better Objective: Vital Signs Temp Pulse Resp BP Pulse Ox 37 C 98 19 131/67 H 96 01/26/17 11:51 01/26/17 11:51 01/26/17 11:51 01/26/17 11:51 01/26/17 11:51 Laboratory Results 01/26/17 05:36 01/26/17 03:12 01/25/17 01/26/17 01/27/17 05:59 05:59 05:59 Intake Total 200 1645 340 Output Total 3325 400 Balance 200 -1680 -60 PT 17.3 SEC (12.0-15.0) H 01/25/17 05:50 INR 1.42 (0.83-1.16) H 01/25/17 05:50 - Physical Exam Constitutional: no apparent distress, appears nourished Eyes: PERRL, anicteric sclera Ears, Nose, Mouth, Throat: moist mucous membranes, hearing normal Cardiovascular: regular rate and rhythym, no murmur, rub, or gallop Respiratory: no respiratory distress, no rales or rhonchi Gastrointestinal: normoactive bowel sounds, soft, non-tender abdomen Genitourinary: No dempsey in urethra Skin: warm, normal color Musculoskeletal: full muscle strength, no muscle tenderness Neurologic: AAOx3, sensation intact bilaterally ICD10 Worksheet Patient Problems: Problems Problem Status Onset Abdominal pain Acute Abdominal pain Acute Deep vein blood clot of left lower extremity Acute Pancreatic cancer Acute Pancreatic cancer Acute Postop check Acute Urinary tract infection Acute
--- NOTE | 2017-01-26 14:44 | GDS ---
[f rep st] DISCHARGE SUMMARY DISCHARGE DIAGNOSES: 1. Abdominal pain. 2. Hyperkalemia, now resolved. 3. Metastatic pancreatic cancer. 4. Mesenteric vein thrombosis. 5. Anemia secondary to chemotherapy and marrow suppression, status post 1 unit of packed red cells. HOSPITAL COURSE: Please see admission history and physical by Dr. Jayne Medina. The patient p resented from [place] [facility] with abdominal pain and hyperkalemia. There was some intermittent constip ation and diarrhea. She had normal bowel movements here. She had an unconcerning abdominal exam. She had some epigastric pain that was felt secondary to her malignancy. She was followed in telemet ry without arrhythmia. She was transfused. She had an EKG performed on presentation showing sinus rhythm with no ischemic changes. She is disc harged home on unchanged medication regimen. /[id number]/MODL
== END 2017-01-26 15:56 | disposition home or self-care (01) ==
LOC: F2W 00:42
PROVIDERS: ADMIT Internal Medicine; ATTEND Internal Medicine
PROC: 30233N1 Transfusion of Nonautologous Red Blood Cells into Peripheral Vein, Percutaneous Approach (ICD-10-PCS; principal; 2017-01-25)
DX: R10.9 Unspecified abdominal pain (principal); E87.5 Hyperkalemia; C25.9 Malignant neoplasm of pancreas, unspecified; D64.81 Anemia due to antineoplastic chemotherapy; I82.890 Acute embolism and thrombosis of other specified veins; E11.9 Type 2 diabetes mellitus without complications; I10 Essential (primary) hypertension; G47.33 Obstructive sleep apnea (adult) (pediatric)
CPT/HCPCS: 93005; G0378; J1170; J1815; J2405; J3475; P9016

== ENCOUNTER 2017-02-01 10:17 | Inpatient (IN) | payer OTHER ==
--- NOTE | 2017-02-01 10:32 | CPEKG ---
Heart Rate: 111 RR Interval: 541 P-R Interval: 116 QRSD Interval: 76 QT Interval: 320 QTC Interval: 435 P [place]: 67 QRS [place]: 20 T Wave [place]: 7 EKG Severity - BORDERLINE ECG - EKG Impression: SINUS TACHYCARDIA EKG Impression: BORDERLINE T WAVE ABNORMALITIES EKG Impression: similar to previous Electronically Signed By: Obey Ennis 01-Feb-2017 10:54:37
[2017-02-01] MEDS ORDERED: NS 2,600 ML IV ONE (10:48)
--- NOTE | 2017-02-01 10:53 | EDPHY ---
H & P Stated Complaint: AMS, confusion, and increased weakness since wednesday, d/c from hospital tue Time Seen by Provider: 02/01/17 10:34 HPI/ROS: CHIEF COMPLAINT: Altered mental status HISTORY OF PRESENT ILLNESS: The patient is a 71-year-old female who comes to the emergency department with her daughter. She has a history of stage IV pancreatic cancer with mets to the liver. She is undergoing chemotherapy with Dr. Mo. 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 She wears oxygen while sleeping and has a history of obstructive sleep apnea. She was hospitalized 1 week ago for hyperkalemia and abdominal pain. daughter states that over the last 3 days she has become increasingly weak and shaky. Also confused. She did notice some dark urine yesterday. The patient's daughter states that she also became delirious yesterday evening, seeing and hearing things that were not there. She has not had a fever. She has not had any cough shortness of breath. No vomiting or diarrhea. patient does not state whether not she has any pain. REVIEW OF SYSTEMS: Constitutional: denies: chills, fever, recent illness, recent injury EENTM: denies: blurred vision, double vision, nose congestion Respiratory: denies: cough, shortness of breath Cardiac: denies: chest pain, irregular heart rate, lightheadedness, palpitations Gastrointestinal/Abdominal: denies: abdominal pain, diarrhea, nausea, vomiting, blood streaked stools Genitourinary: See HPI Musculoskeletal: denies: joint pain, muscle pain Skin: denies: lesions, rash, jaundice, bruising Neurological: denies: headache, numbness, paresthesia, tingling, dizziness, weakness Hematologic/Lymphatic: denies: blood clots, easy bleeding, easy bruising Immunologic/allergic: denies: HIV/AIDS, transplant EXAM: GENERAL: Obese, confused HEAD: Atraumatic, normocephalic. EYES: Pupils equal round and reactive to light, extraocular movements intact, sclera anicteric, conjunctiva are normal. ENT: TMs normal, nares patent, oropharynx clear without exudates. Moist mucous membranes. NECK: Normal range of motion, supple without lymphadenopathy or JVD. LUNGS: Breath sounds clear to auscultation bilaterally and equal. No wheezes rales or rhonchi. HEART: Regular rate and rhythm without murmurs, rubs or gallops. ABDOMEN: Soft, nontender, normoactive bowel sounds. No guarding, no rebound. No masses appreciated. BACK: No CVA tenderness, no spinal tenderness, step-offs or deformities EXTREMITIES: Normal range of motion, no pitting or edema. No clubbing or cyanosis. no visible ulcers or infections NEUROLOGICAL: Cranial nerves II through XII grossly intact. Normal speech, confused, does not cooperate with most questions . 4/5 strength diffusely and equally, normal movement in all extremities, normal sensation PSYCH: Unable to assess SKIN: Warm, dry, normal turgor, no visible rashes or lesions. Source: Patient Exam Limitations: No limitations - Personal History Current Tetanus/Diphtheria Vaccine: Yes Current Tetanus Diphtheria and Acellular Pertussis (TDAP): Yes Tetanus Vaccine Date: 2008 - Medical/Surgical History Hx Asthma: No Hx Chronic Respiratory Disease: Yes Hx Diabetes: Yes Hx Cardiac Disease: No Hx Renal Disease: No Hx Cirrhosis: No Hx Alcoholism: No Hx HIV/AIDS: No Hx Splenectomy or Spleen Trauma: No Other PMH: DM type 2 / PANCREATIC CANCER/COPD/ SLEEP APNEA/ WITH BIPAP AT HOME PLEURAL EFFUSIONS 2014. HYSTERCTOMY 05/02. R TOTAL KNEE REPLACEMENT 2005. BILAT CATARACT SURG. - Family History Significant Family History: No pertinent family hx - Social History Smoking Status: Never smoked Alcohol Use: Sober Drug Use: None Constitutional: Initial Vital Signs Temperature (C) 37.1 C 02/01/17 10:30 Heart Rate 123 H 02/01/17 10:30 Respiratory Rate 16 02/01/17 10:30 Blood Pressure 132/75 H 02/01/17 10:30 O2 Sat (%) 96 02/01/17 10:30 O2 Delivery Mode Room Air O2 (L/minute) 3 Allergies/Adverse Reactions: No Known Allergies Allergy (Verified 02/01/17 10:29) Home Medications: Medication Instructions Recorded Metoprolol Succinate Xr [Toprol Xl 50 mg PO DAILY 03/31/16 50 mg (*)] Multivitamins [Multivitamin (*)] 1 each PO DAILY 03/31/16 Omeprazole 40 mg PO DAILY 03/31/16 Pravastatin Sodium [Pravachol] 10 mg PO HS 03/31/16 Venlafaxine HCl [Venlafaxine 75MG 75 mg PO BID 03/31/16 (*)] Insulin Glargine [Lantus 100 20 units SC HS #0 ml 10/03/16 UNITS/ML (*)] Acetaminophen [Tylenol 325mg (*)] 325 mg PO Q6 PRN 01/08/17 Gabapentin [Neurontin 300 MG (*)] 300 mg PO TID 01/08/17 Ondansetron Odt [Zofran Odt 4 mg 8 mg PO Q4PRN PRN 01/08/17 (*)] Sennosides 8.6 mg PO TID PRN 01/08/17 Rivaroxaban [Xarelto] 20 mg PO DAILY #30 tablet 01/10/17 Metoclopramide [Reglan 10 mg tab 10 mg PO QID PRN 01/25/17 (*)] morphINE SR [MS Contin/Oramorph SR 30 mg PO TID 01/25/17 30 mg (*)] HYDROmorphone HCL [Dilaudid 2 mg 2 - 4 mg PO Q4H PRN 02/01/17 (*)] Medical Decision Making - Diagnostics EKG Interpretation: An EKG obtained and was read and documented in trace view. Please see trace view for full reading and report. Sinus rhythm, no acute ischemic changes tachycardic Imaging: Discussed imaging studies w/ care center manager Radiologist ED Course/Re-evaluation: 2:45 P.M. we discussed the imaging and lab results. Will admit to the hospital. The patient does qualify for severe sepsis. She has been given a fluid bolus. Her lactate is less than 2. IV antibiotics given and cultures have been drawn. She does not currently have a gastrologist. 3:00 p.m. I discussed the case with Zulma Tam who admitted request that we consult Gastroenterology. 3:20 p.m. I discussed the case with Dr. Murrell who will consult. She recommends we add on LFTs. The patient's INR is elevated and she is on Xarelto not Coumadin. Differential Diagnosis: Partial list of the Differential diagnosis considered include but were not limited to; severe sepsis, urinary tract infection, cholelithiasis, acalculous cholecystitis, obstruction and although unlikely based on the history and physical exam, I also considered ischemia hemorrhage, acute coronary disease. - Data Points Laboratory Results: Laboratory Results 02/01/17 10:36 02/01/17 10:36 Microbiology Results: MICROBIOLOGY 02/01/17 12:11 Blood Blood Culture - Preliminary 02/01/17 10:36 Blood Blood Culture - Preliminary 02/01/17 10:36 Blood Blood Panel (PCR) - Preliminary Escherichia Coli Medications Given: Discontinued Medications Hydromorphone HCl (Dilaudid) 1 mg IVP EDNOW ONE Stop: 02/01/17 11:16 Last Admin: 02/01/17 11:59 Dose: 1 mg Hydromorphone HCl (Dilaudid) 1 mg IVP EDNOW ONE Stop: 02/01/17 13:39 Last Admin: 02/01/17 13:45 Dose: 1 mg Sodium Chloride (Ns) 2,600 mls @ 5,200 mls/hr 30 ml/kg infuse over 30 min ( 2600 ml) IV EDNOW ONE Stop: 02/01/17 11:17 Last Admin: 02/01/17 11:59 Dose: 2,600 mls Ceftriaxone Sodium/Dextrose (Rocephin 1 Gm (Premix)) 50 mls @ 100 mls/hr IV EDNOW ONE PRN Reason: Protocol Stop: 02/01/17 15:20 Last Admin: 02/01/17 15:05 Dose: 50 mls Departure - Departure Disposition: [facility] Inpatient Acute Clinical Impression: Severe sepsis, Biliary obstruction Pancreatic cancer Qualifiers: Pancreatic malignancy location: unspecified Qualified Code(s): C25.9 - Malignant neoplasm of pancreas, unspecified Urinary tract infection Qualifiers: Urinary tract infection type: site unspecified Hematuria presence: without hematuria Qualified Code(s): N39.0 - Urinary tract infection, site not specified Condition: Fair
[2017-02-01 10:54] LABS: ABSOLUTE NRBC COUNT 0.09 10^3/uL (0-0.01); ADD DIFF? YES; ADD MORPH? YES; ADD SCAN? NO; ATYPICAL LYMPHOCYTE FLAG 0 (0-99); FRAGMENT RBC FLAG 30 (0-99); HEMATOCRIT 28.3 % (38.0-47.0); HEMOGLOBIN 8.8 g/dL (12.6-16.3); LEFT SHIFT FLG 30 (0-99); LIPEMIA HEMOLYSIS FLAG 80 (0-99); MEAN CELL HEMOGLOBIN 29.3 pg (27.9-34.1); MEAN CELL HEMOGLOBIN CONCENTR. 31.1 g/dL (32.4-36.7); MEAN CELL VOLUME 94.3 fL (81.5-99.8); MEAN PLATELET VOLUME 10.4 fL (8.7-11.7); NRBC-AUTO% 0.6 % (0.0-0.2); PLATELET CLUMPS FLAG 30 (0-99); PLATELET COUNT 383 10^3/uL (150-400)
[2017-02-01 11:15] LABS: ANION GAP 7 mEq/L (8-16); BILIRUBIN,TOTAL 3.7 mg/dL (0.1-1.4); CARBON DIOXIDE 26 mEq/l (22-31); CHLORIDE 103 mEq/L (97-110); CREATININE 0.6 mg/dL (0.6-1.0); GLOMERULAR FILTRATION RATE > 60; GLUCOSE 114 mg/dL (70-100); POTASSIUM 4.4 mEq/L (3.5-5.2); SODIUM 136 mEq/L (134-144)
[2017-02-01] MEDS ORDERED: HYDROmorphONE/DILAUDID 1 MG/ML SYR IVP ONE ×2 (11:15→13:38)
[2017-02-01 11:16] LABS: APTT 42.8 SEC (23.0-38.0)
[2017-02-01 11:28] LABS: PROTIME(PATIENT) 48.5 SEC (12.0-15.0)
[2017-02-01 11:29] LABS: INR 5.14 (0.83-1.16)
[2017-02-01 11:38] LABS: MICROCYTES 1+; POLYCHROMASIA 1+
[2017-02-01 11:39] LABS: HYPOCHROMIA 1+
[2017-02-01 11:44] LABS: BILIRUBIN-CONJUGATED 3.1 mg/dL (0.0-0.5); BILIRUBIN-UNCONJUGATED 0.6 mg/dL (0.0-1.1)
[2017-02-01 13:19] LABS: PLATELET ESTIMATE ADEQUATE (ADEQ)
[2017-02-01 13:38] LABS: COLOR AMBER; LEUKOCYTE ESTERASE,URINE TRACE (NEGATIVE); NITRITE,URINE NEGATIVE (NEGATIVE)
[2017-02-01 13:57] LABS: BACTERIA TRACE /hpf (NONE SEEN); MUCUS 4+ /lpf (NONE-1+); WBC,URINE 25-50 /hpf (0-3)
[2017-02-01 13:58] LABS: HYALINE CASTS 50-182 /lpf (0-1)
[2017-02-01 15:32] LABS: ALBUMIN 2.4 g/dL (3.5-5.0); BILIRUBIN,TOTAL 3.6 mg/dL (0.1-1.4); BILIRUBIN-UNCONJUGATED 0.6 mg/dL (0.0-1.1); TOTAL PROTEIN 4.9 g/dL (6.3-8.2)
[2017-02-01] MEDS ORDERED: ACETAMINOPHEN 325 MG TAB PO PRN (16:03)
[2017-02-01] MEDS ORDERED: ONDANSETRON DISINTEGRATING 4 MG TAB PO PRN (16:03)
[2017-02-01] MEDS ORDERED: METOCLOPRAMIDE 10 MG TAB PO PRN (16:03)
[2017-02-01] MEDS ORDERED: SENNOSIDES 1 TAB PO PRN (16:03)
[2017-02-01] MEDS ORDERED: D50W 25 GM/50 ML SYR IVP PRN (16:08)
[2017-02-01] MEDS ORDERED: MAGNESIUM HYDROXIDE 30 ML UDCUP PO PRN (16:09)
[2017-02-01] MEDS ORDERED: POLYETHYLENE GLYCOL 3350 17 GM PKT PO PRN (16:09)
[2017-02-01] MEDS ORDERED: BISACODYL 10 MG SUPP PR PRN (16:09)
[2017-02-01] MEDS ORDERED: LACTULOSE 20 GM/30 ML UDCUP PO PRN (16:09)
[2017-02-01] MEDS: HYDROmorphONE/DILAUDID 1 MG/ML SYR IVP PRN ×3 (16:56→22:35)
--- NOTE | 2017-02-01 16:56 | GHP ---
[f rep st] HISTORY AND PHYSICAL DATE OF ADMISSION: 02/01/2017 CHIEF COMPLAINT: Abdominal pain. HISTORY: Patient is a 71-year-old female, diagnosed in September with metastatic pancreatic cancer, currently on chemo, following with Dr. Mo. Three weeks ago she was diagnosed with a mesenteric vein thrombosis and DVT and was started on Xarelto. She now presents to the hospital with increasing weakness and abdominal pain. Daughter first notice d her weakness worsening about 4 days ago and found her glucose low which she thought was the etiolo gy of the problem. Patient was shaky and she could not stand. She has had 3 days of confusion with visual hallucinations. She has increasing abdominal pain and daughter started her on scheduled patti n medications but it has not helped. Her urine turned orange. Her abdominal pain is lower chest, w orsening for the last 2 weeks. Very bad over the last few days. Dull, sharp and pulsating with michael e nausea and vomiting. Pain is much worse 20 minutes after eating. There has been no fever but she has had night sweats. She is chronically constipated. This pain is superimposed on the chronic pa in she has due to her pancreatic cancer which she describes as more of a mid abdominal pain radiatin g to the back. PAST MEDICAL HISTORY: 1. Metastatic pancreatic cancer, a solitary liver metastases known. 2. 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 3. Diabetes type 2. 4. Parkinson's. 5. Obstructive sleep apnea on nocturnal oxygen. 6. Left ankle fracture, recent. PAST SURGICAL HISTORY: Hysterectomy, appendectomy, total knee arthroplasty. MEDICATIONS: Please see computer record for full detailed list. ALLERGIES: No known drug allergies. SOCIAL HISTORY: No smoking. No alcohol. She lives with her daughter. CODE STATUS: Full. REVIEW OF SYSTEMS: Complete review of systems obtained. Review of systems is negative regarding co nstitutional, HEENT, GI, pulmonary, cardiovascular, , hematology, skin, musculoskeletal, endocrine , psych. Positives and negatives as in HPI. FAMILY HISTORY: Reviewed and noncontributory for same complaints. PHYSICAL EXAMINATION: GENERAL: Well-developed, well-nourished female, looking very ill, rolled in a ball on the stretcher. Minimally participatory. VITAL SIGNS: Temp is 37.1, pulse 123, blood pre ssure 145/75, saturating 93% on room air. EYES: Normal conjunctivae. Pupils react to light. ENT: Normal ears, nose. Hearing intact. Normal lips and teeth. Oropharynx very dry. NECK: Trachea m idline. No thyromegaly. CHEST: Normal respiratory effort. LUNGS: Clear to auscultation bilatera lly. CARDIOVASCULAR: Regular rate and rhythm. No murmur. No lower extremity edema. ABDOMEN: So ft, quite tender to palpation over the epigastrium, right upper quadrant. No hepatosplenomegaly. S KIN: Warm, dry, intact without rash. MUSCULOSKELETAL: No cyanosis or clubbing. Strength 5/5 uppe r and lower extremities. NEURO: Cranial nerves intact, normal sensation to light touch. PSYCH: V rasheeda flat affect. Awake and arousable. Does follow commands but minimally interactive, difficult to assess judgment and insight and memory due to her severely flattened affect and minimal participati on. LABS: White count 16.12, hematocrit 28.3, platelets 383. Sodium 136, potassium 4.4, chloride 103, bicarb 26, BUN 11, creatinine 0.6, glucose 114, INR 5.14, lactate 1.6. Total bilirubin 3.7, AST 499 , ALT 255. Alkaline phosphatase 1417. Urinalysis shows 25-50 white blood cells. EKG viewed by me and my personal interpretation is sinus tachycardia. No ST or T-wave changes. Chest x-ray shows bronchial thickening. Abdominal ultrasound shows moderate biliary dilatation secondary to pancreatic mass. There is gallb ladder sludge. There is also worsening cancer with metastases bulging into the common bile duct. ASSESSMENT/PLAN: 1. Severe sepsis. I suspect cholangitis due to biliary obstruction due to tumor. Gastroenterology has been consulted. I anticipate she will need an ERCP with stent placement. We will hold her Xar elto, will treat with IV Invanz, IV fluid and follow serial lactates. 2. Metastatic pancreatic cancer. Unfortunately, this is progressing despite chemotherapy. 3. Metabolic encephalopathy. This is due to her infection. 4. Mesenteric vein thrombosis and DVT. I will hold her Xarelto for anticipated procedure. Her INR is very elevated on admission probably due to a combination of Xarelto and her hepatic failure from liver metastases. 5. Diabetes type 2. We will hold her Lantus given her hypoglycemia and follow with a sliding scale . CODE STATUS: Full. ADMISSION STATUS: 1. Will admit to inpatient as she is quite ill. Anticipate greater than 2 midnights for stabilizat ion. 2. DVT prophylaxis. She is relatively lower risk given her chronic anticoagulation. Anticoagulati on plan as above. /[id number]/MODL
[2017-02-01] MEDS ORDERED: GLUCAGON,HUMAN RECOMBINANT 1 MG VIAL ONE (17:10)
[2017-02-01] MEDS ORDERED: IOTHALAMATE MEG (CONRAY) 50 ML VIAL IV ONE (17:10)
--- NOTE | 2017-02-01 17:22 | GCON ---
[f rep st] CONSULTATION HISTORY OF PRESENT ILLNESS: This is a patient with metastatic pancreatic carcinoma who has been undergoing chemotherapy with gemcitabine and Abraxane. She has had a bit of a mixed response with improvement in some liver disease but increasing size of the mass in her pancreatic head. She presented to the emergency room complaining of increasing fatigue and some confusion. She has also been having some abdominal pain, and the daughter has noted dark urine. 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 On presentation to the emergency room, she was tachycardic, blood pressure 166/96. She is being admitted for further evaluation. Currently, she is conscious but somewhat sluggish and appears acutely ill. PAST MEDICAL HISTORY: Significant for appendectomy, cataract removal, bilateral joint replacement, TAHBSO, and diabetes. SOCIAL HISTORY: She is accompanied by her daughter. She previously lived in [place]. PHYSICAL EXAMINATION: GENERAL: Currently, she is an overweight female. VITAL SIGNS: As noted, she is afebrile, blood pressure 166/96. HEENT: She is icteric. LUNGS: Somewhat diminished breath sounds. CARDIAC: She is tachycardic. ABDOMEN: Some mild tenderness in the right upper quadrant. LABORATORY DATA: Sodium is 136. There has been a dramatic elevation in her liver function tests from a few days ago. AST is now 499, bilirubin is 3.6, ALT is 255, alk phos 1417. Urinalysis shows significant pyuria. Culture is pending. Abdominal ultrasound shows new moderate biliary dilatation, likely due to an obstructing downstream pancreatic mass. There is sludge within the gallbladder. There is felt to be progression of disease in the pancreatic primary and in liver metastasis since January 08, 2017. The portal vein is currently patent. IMPRESSION: Patient with biliary obstruction secondary to pancreatic mass. Cholangitis is a possibility. She may also have a urinary tract infection. GI has been consulted. She has been placed on ertapenem. She has an elevated white count and anemia, platelets are adequate. She wants to be a full code at this point in time. Biliary stenting may be indicated. Our service will follow with you. /[id number]/MODL MTDD
[2017-02-01] MEDS ORDERED: fentaNYL 100 MCG/2 ML INJ ONE ×2 (17:52→18:32)
[2017-02-01] MEDS ORDERED: ETOMIDATE 20 MG/10 ML VIAL ONE (17:54)
[2017-02-01] MEDS ORDERED: LIDOCAINE 2% 5 ML SDV ONE (17:54)
[2017-02-01] MEDS ORDERED: SUCCINYLCHOLINE CHLORIDE*ANESTHESIA ONLY*200 MG/10 ML SYR IVP ONE (17:54)
[2017-02-01] MEDS ORDERED: PROPOFOL 200 MG/20 ML VIAL ONE (17:55)
[2017-02-01] MEDS ORDERED: DEXAMETHASONE 4 MG/ML VIAL ONE (18:17)
[2017-02-01] MEDS ORDERED: ONDANSETRON 4 MG/2 ML VIAL ONE (18:18)
--- NOTE | 2017-02-01 18:54 | POSTOPPROG ---
Post Op Note Date of Operation: 02/01/17 Surgeon: Bora Hazel Pre-op Diagnosis: Cholangitis Post-op Diagnosis: Cholangitis Indication: Sepsis, ascending cholangitis Procedure: ERCP with stent insertion Findings: Biliary stricture in distal bile duct and at bifurcation, s/p plastic stent Inf/Abcess present in the surg proc area at time of surgery?: No EBL: Minimal Complications: None
--- NOTE | 2017-02-01 19:47 | GCON ---
[f rep st] CONSULTATION GASTROENTEROLOGY CONSULTATION DATE OF CONSULTATION: 02/01/2017 REFERRING PHYSICIAN: Zulma Tam MD CHIEF COMPLAINT: Confusion and abdominal pain. REASON FOR CONSULTATION: I am asked to see this patient in consultation by Dr. Tam for a chief co mplaint of abdominal pain and confusion. HISTORY OF PRESENT ILLNESS: The patient is a pleasant 71-year-old, diagnosed with metastatic pancre atic cancer in September 2016, undergoing chemotherapy. Has had a complicated course with recent mes enteric vein thrombosis. Admitted earlier this month and placed on Xarelto. Discharged about a wee k ago. Was sent home and was having continued abdominal pain, although manageable. Generally, she feels it is bandlike across her abdomen, but then started to develop weakness, increasing confusion, and daughter brought her mother back to the emergency room today. She was found to have an elevate d bilirubin and tachycardia concerning for possible urosepsis. The patient has also had a new pain she feels more in the epigastric area just above the breast bone. At present, is about a 4/10 to 5/ 10. She is having underlying constipation from narcotics, but no blood in her stools, no melena, no nausea and vomiting today, or hematemesis, but the daughter does report having some vomiting earlie r this week. The patient has new biliary duct dilation and elevated LFTs. There has been no fevers or chills at home. ALLERGIES: No known drug allergies. MEDICATIONS: Home medications include Tylenol, Dulcolax, Neurontin, Dilaudid, milk of magnesia, Reg israel, metoprolol, Zofran, venlafaxine, and received ertapenem here in the emergency room. PAST MEDICAL HISTORY: Notable for metastatic pancreatic cancer with solitary liver metastasis that is known, mesenteric vein thrombosis and DVT to left leg, diabetes, Parkinson's, obstructive sleep a pnea, and recent left ankle fracture. PAST SURGICAL HISTORY: She is status post hysterectomy, appendectomy, and knee replacement. FAMILY HISTORY: Negative for pancreatic issues. SOCIAL HISTORY: No alcohol, per daughter. REVIEW OF SYSTEMS: I have performed a review of systems which is negative, except for the pertinent negatives and positives as noted above in HPI. PHYSICAL EXAM: VITAL SIGNS: The patient is afebrile at 37 degrees, BP is 145/75, pulse 115. CONST ITUTIONAL: She is alert, but somewhat confused. HEENT: Eyes do show scleral icterus. No oral les ions. CARDIOVASCULAR: Regular rhythm. CHEST: Clear auscultation bilaterally. ABDOMEN: Positive bowel sounds. She is soft, but tender to palpation in the epigastric area. NEUROLOGIC: Grossly n onfocal. SKIN: No obvious rashes. LABORATORY DATA: Remarkable for an elevated alkaline phosphatase of 1417, AST is 448, ALT is 225, t otal bilirubin is 3.7. Prothrombin time is elevated at 4845 with an INR of 5. White count 16 with a hematocrit at 28. Ultrasound shows new duct dilation to 2.2 cm with sludge within the common duct as well as within th e gallbladder. There appears to be mass effect at the hilum in the liver. There is splenic vein oc clusion. ASSESSMENT: Patient is complex with multiple medical problems and serious exacerbation resulting fr om underlying pancreatic cancer with mesenteric vein thrombosis and no evidence of splenic vein thro mbosis. She also has evidence of pancreatic duct obstruction presumably from tumor, also with tumor at likely compressing into the hilum, with elevated LFTs. Of concern is that she may have biliary sepsis manifested with high white count, tachycardia, although she also has the possibility of urose psis as well. The patient also has a new coagulopathy. She is on Xarelto for thrombosis of the mes enteric vessels, but also query if some of her elevated INR may be from some new liver failure. How ever, given the concern for the possibility of cholangitis, the patient would benefit from biliary d ecompression. I had a thorough discussion with the patient and her daughter regarding the risks and benefits and alternatives for an endoscopic retrograde cholangiopancreatography. Given the high IN R, I think she would be a poor candidate for percutaneous drainage and it is thought that an endosco pic retrograde cholangiopancreatography with a plan to place a plastic stent without sphincterotomy likely would provide the least amount of risk for bleeding and provide adequate biliary drainage. Satya yarbrough understands potential risks and would like to proceed for biliary drainage, and release of a ny possible cholangitis, which we will try to arrange for tonight. PLAN: 1. Will keep n.p.o. 2. Agree with IV antibiotics. 3. Plan for ERCP with aim for plastic stent placement for biliary decompression. This would be hig h risk given patient's current status and particular risk for bleeding given her coagulopathy, so we will do this without a sphincterotomy. The patient may be at risk for other bleeding given her por alberto vein thrombosis. Can assess for possible gastric varices; however, they should not preclude kylah cement of a stent. The patient overall would be high risk for acute reversal for her coagulopathy g iven her known underlying mesenteric and portal vein thrombosis. Thank you for this consult. /[id number]/MODL
[2017-02-01] MEDS: SENNOSIDES/DOCUSATE SODIUM TAB PO SCH (20:21)
[2017-02-01] MEDS: VENLAFAXINE HCL 75 MG TAB PO SCH (20:21)
--- NOTE | 2017-02-01 20:38 | GOP ---
[f rep st] OPERATIVE REPORT DATE OF OPERATION: SURGEON: Bora Hazel MD ANESTHESIA: General anesthesia. PREOPERATIVE DIAGNOSIS: Metastatic pancreatic cancer and ascending cholangitis. POSTOPERATIVE DIAGNOSIS: Metastatic pancreatic cancer and ascending cholangitis. PROCEDURE PERFORMED: Endoscopic retrograde cholangiopancreatography with stent insertion. FINDINGS: INDICATIONS: The patient is a 71-year-old female with a history of metastatic pancreatic cancer who presented with abdominal pain, confusion, and evidence of sepsis. Her white count was elevated. Ultrasound showed new dilation of the bile duct and possibly compression of the bile duct near the hilum secondary to liver metastases. She received 1 dose of ertapenem prior to the procedure. The risks and benefits of procedure were discussed with the patient's daughter, and consent obtained. The risks include, but are not limited to, bleeding, perforation, pancreatitis, other risks related to sedation. DESCRIPTION OF PROCEDURE: The duodenoscope was inserted into the esophagus and the stomach to the 2nd portion the duodenum. The ampulla appeared normal. The hydratome catheter was used to engage the ampulla. The preloaded wire was inserted into the intrahepatic biliary tree to secure position. The pancreatic duct was never injected or cannulated. The hydratome catheter was inserted deep into the bile duct and the contrast dye injected. There was dilation of the bile duct. There was a distal narrowing of the ampulla consistent with a pancreatic head mass. In addition, there was a narrowing at the bifurcation indicating possibly extrinsic compression at that location. Next, I inserted a 12-15 mm stone extraction balloon to better delineate the strictures/narrowing. Contrast dye was injected. The decision was made to place a 10-[place], 9 cm plastic biliary stent to extend across the more proximal stricture at the bifurcation. No sphincterotomy was performed because her INR was 5.14, and she received a dose of Xarelto this morning. The [employer] stent was placed in the proper position over the guidewire and introducer. The stent was draining pus and bile. IMPRESSION: 1. Cholangitis. 2. Narrowing of the bile duct to the bifurcation and the distal bile duct. 3. Status post placement of a 10-[place], 9 cm plastic biliary stent into proper position that was draining well. 4. No evidence of gastric varices. RECOMMENDATIONS: 1. Continue intravenous antibiotics. I would recommend a total of 7 days of antibiotics for cholangitis. 2. Plan per the inpatient ICU team. 3. Depending on her clinical course, we would need to repeat ERCP with biliary sphincterotomy, and placement of a more permanent fully covered metal stent in the future. This could be done in 4-6 weeks after discharge from the hospital. Thank you for allowing me to participate in the care of patient. Please do not hesitate to call with questions. /[id number]/MODL MTDD
[2017-02-01] MEDS ORDERED: METOPROLOL TARTRATE 5 MG/5 ML INJ IVP PRN ×2 (20:54→20:55)
[2017-02-01] MEDS ORDERED: INSULIN GLARGINE 100 UNITS/ML SYRINGE SC SCH (21:00)
[2017-02-01] MEDS: ERTAPENEM 1 GM in NS 100 ML IV SCH (21:14)
[2017-02-01] MEDS: morphINE SR 30 MG TAB PO SCH (21:14)
[2017-02-01] MEDS: GABAPENTIN 300 MG CAP PO SCH (21:14)
[2017-02-01] MEDS: INSULIN REGULAR HUMAN 100 UNIT/ML SC SCH ×2 (21:26→21:58)
[2017-02-01] MEDS: HYDROmorphONE/DILAUDID 2 MG TAB PO PRN (22:35)
[2017-02-02] MEDS: HYDROmorphONE/DILAUDID 2 MG TAB PO PRN ×2 (03:30→19:37)
[2017-02-02 05:16] LABS: ABSOLUTE NRBC COUNT 0.13 10^3/uL (0-0.01); ADD DIFF? YES; ADD MORPH? YES; ATYPICAL LYMPHOCYTE FLAG 0 (0-99); FRAGMENT RBC FLAG 30 (0-99); HEMATOCRIT 22.6 % (38.0-47.0); HEMOGLOBIN 7.1 g/dL (12.6-16.3); LIPEMIA HEMOLYSIS FLAG 80 (0-99); MEAN CELL HEMOGLOBIN 29.6 pg (27.9-34.1); MEAN CELL HEMOGLOBIN CONCENTR. 31.4 g/dL (32.4-36.7); MEAN CELL VOLUME 94.2 fL (81.5-99.8); MEAN PLATELET VOLUME 10.1 fL (8.7-11.7); NRBC-AUTO% 0.7 % (0.0-0.2); PLATELET CLUMPS FLAG 0 (0-99); PLATELET COUNT 321 10^3/uL (150-400)
[2017-02-02 05:23] LABS: INR 3.64 (0.83-1.16); PROTIME(PATIENT) 36.8 SEC (12.0-15.0)
[2017-02-02 05:24] LABS: ADD SCAN? NO; LEFT SHIFT FLG 220 (0-99); RED CELL DISTRIBUTION WIDTH 23.9 % (11.5-15.2)
[2017-02-02 05:34] LABS: ALANINE AMINOTRANSFERASE 219 IU/L (9-52); ALKALINE PHOSPHATASE 1195 IU/L (38-126); ANION GAP 10 mEq/L (8-16); ASPARTATE AMINOTRANSFERASE 419 IU/L (14-46); BILIRUBIN-CONJUGATED 3.5 mg/dL (0.0-0.5); BILIRUBIN-UNCONJUGATED 0.5 mg/dL (0.0-1.1); CALCIUM 8.4 mg/dL (8.5-10.4); CARBON DIOXIDE 22 mEq/l (22-31); CHLORIDE 107 mEq/L (97-110); CREATININE 0.6 mg/dL (0.6-1.0); GLOMERULAR FILTRATION RATE > 60; GLUCOSE 103 mg/dL (70-100); MAGNESIUM 1.7 mg/dL (1.6-2.3); POTASSIUM 4.1 mEq/L (3.5-5.2); SODIUM 139 mEq/L (134-144); TOTAL PROTEIN 4.1 g/dL (6.3-8.2)
[2017-02-02 06:07] LABS: PLATELET ESTIMATE ADEQUATE (ADEQ)
[2017-02-02 06:12] LABS: MICROCYTES 1+
[2017-02-02 06:13] LABS: HYPOCHROMIA 2+; POLYCHROMASIA 1+
[2017-02-02] MEDS: INSULIN REGULAR HUMAN 100 UNIT/ML SC SCH ×4 (07:49→21:45)
[2017-02-02] MEDS: SENNOSIDES/DOCUSATE SODIUM TAB PO SCH ×2 (09:15→21:44)
[2017-02-02] MEDS: morphINE SR 30 MG TAB PO SCH ×3 (09:15→21:44)
[2017-02-02] MEDS: PANTOPRAZOLE SODIUM 40 MG TAB PO SCH (09:15)
[2017-02-02] MEDS: GABAPENTIN 300 MG CAP PO SCH ×3 (09:15→21:45)
[2017-02-02] MEDS: METOPROLOL SUCCINATE XR 50 MG TAB PO SCH (09:16)
[2017-02-02] MEDS: VENLAFAXINE HCL 75 MG TAB PO SCH ×2 (09:16→21:44)
[2017-02-02] MEDS: NS 1,000 ML IV SCH ×2 (10:56→18:50)
[2017-02-02] MEDS: ONDANSETRON 4 MG/2 ML VIAL IVP PRN (11:15)
[2017-02-02] MEDS: HYDROmorphONE/DILAUDID 1 MG/ML SYR IVP PRN ×2 (11:26→19:39)
--- NOTE | 2017-02-02 12:36 | SOAPPROG ---
SOAP Progress Note Assessment/Plan: Assessment: 1. Pancreatic ca 2. Jaundice, biliary obstruction, staus post stent 3. anemia 4. Possible uti 5. history mesenteric vein thrombosis 6.Diabetes Plan:Continue antibiotics, supportive care, holding anticoagulation, may need txn soon 02/02/17 12:32 Subjective: Sleeping post procedure Objective: Vital Signs Temp Pulse Resp BP Pulse Ox 101.9 F H 121 H 22 H 150/64 H 97 02/02/17 11:50 02/02/17 11:50 02/02/17 11:50 02/02/17 11:50 02/02/17 11:50 Laboratory Results 02/02/17 05:00 02/02/17 05:00 02/01/17 02/02/17 02/03/17 05:59 05:59 05:59 Intake Total 5338 Output Total 0 Balance 5338 PT 36.8 SEC (12.0-15.0) H D 02/02/17 05:00 INR 3.64 (0.83-1.16) H 02/02/17 05:00 ICD10 Worksheet Patient Problems: Problems Problem Status Onset Biliary obstruction Acute Pancreatic cancer Acute Severe sepsis Acute Urinary tract infection Acute Abdominal pain Acute Abdominal pain Acute Deep vein blood clot of left lower extremity Acute Pancreatic cancer Acute Postop check Acute Urinary tract infection Acute
--- NOTE | 2017-02-02 14:39 | SOAPPROG ---
SOAP Progress Note Assessment/Plan: Assessment: Pancreatic cancer with biliary obstruction and cholangitis s/p biliary stents x2. Still very ill with elevated WBC and decrease MS Mesenteric vein thrombosis anticoagulated Anemia no signs of GIB post ERCP Plan: Continue supportive care and antibiotics Monitor LFT post stent suspect will improve Plastic stents can maintain in place for about 2 months. If dose well could consider exchange to metal stent as guide by overall prognosis 02/02/17 14:40 Subjective: CC jaundice Pt sedated, no melena Objective: Vital Signs Temp Pulse Resp BP Pulse Ox 38.8 C H 121 H 22 H 150/64 H 97 02/02/17 11:50 02/02/17 11:50 02/02/17 11:50 02/02/17 11:50 02/02/17 11:50 Laboratory Results 02/02/17 05:00 02/01/17 02/02/17 02/03/17 05:59 05:59 05:59 Intake Total 5338 Output Total 0 Balance 5338 PT 36.8 SEC (12.0-15.0) H D 02/02/17 05:00 INR 3.64 (0.83-1.16) H 02/02/17 05:00 Physical Exam - Physical Exam General Appearance: other (sedated) Respiratory: lungs clear Cardiac/Chest: regular rate, rhythm Abdomen: non-tender, soft ICD10 Worksheet Patient Problems: Problems Problem Status Onset Biliary obstruction Acute Pancreatic cancer Acute Severe sepsis Acute Urinary tract infection Acute Abdominal pain Acute Abdominal pain Acute Deep vein blood clot of left lower extremity Acute Pancreatic cancer Acute Postop check Acute Urinary tract infection Acute
[2017-02-02 14:41] LABS: HEMATOCRIT 22.9 % (38.0-47.0); HEMOGLOBIN 7.2 g/dL (12.6-16.3)
--- NOTE | 2017-02-02 15:08 | PDINTPN ---
Guest Services Attendant Progress Note Assessment/Plan: Assessment/plan: 71 F with known pancreatic cancer admitted with cholangitis and obstruction, treated with ERCP and temporary stent. Course complicated by altered mental status, bacteremia, and mesenteric vein thrombosis. Mental status remains abnormal but clinically improved per daughter and RN. * Pancreatic cancer with biliary obstruction. Improved s/p ERCP and stent. LFTs remain elevated but anticipate resolution and already decreasing. * Cholangitis with E. Coli bacteremia. WBC elevated today but just had ERCP. Remains on Ertepenem which should be adequate for now. * Altered mental status - possibly from bacteremia/sepsis, complicated by pain control using Dilaudid. Neuro exam is non-focal, but consider head CT if no improvement and reduced narcotics if possible. * Will clarify goals of care at this point. Objective: Vital Signs Temp Pulse Resp BP Pulse Ox 38.8 C H 121 H 22 H 150/64 H 97 02/02/17 11:50 02/02/17 11:50 02/02/17 11:50 02/02/17 11:50 02/02/17 11:50 Laboratory Results 02/02/17 14:30 02/02/17 05:00 02/01/17 02/02/17 02/03/17 05:59 05:59 05:59 Intake Total 5338 Output Total 0 Balance 5338 PT 36.8 SEC (12.0-15.0) H D 02/02/17 05:00 INR 3.64 (0.83-1.16) H 02/02/17 05:00 Physical Exam - Physical Exam General Appearance: mild distress, obese, other (confused) EENT: PERRL/EOMI, normal ENT inspection Neck: supple Respiratory: lungs clear, normal breath sounds, No respiratory distress, No rales Cardiac/Chest: regular rate, rhythm, No edema Abdomen: non-tender, soft, No distended Skin: normal color, No cyanosis Extremities: No pedal edema Neuro/Psych: alert, cognition abnormalities, speech abnormalities ICD10 Worksheet Patient Problems: Problems Problem Status Onset Biliary obstruction Acute Pancreatic cancer Acute Severe sepsis Acute Urinary tract infection Acute Abdominal pain Acute Abdominal pain Acute Deep vein blood clot of left lower extremity Acute Pancreatic cancer Acute Postop check Acute Urinary tract infection Acute
[2017-02-02] MEDS: ERTAPENEM 1 GM in NS 100 ML IV SCH (19:39)
[2017-02-03] MEDS: INSULIN REGULAR HUMAN 100 UNIT/ML SC SCH ×4 (09:23→21:04)
[2017-02-03] MEDS: METOPROLOL SUCCINATE XR 50 MG TAB PO SCH (09:45)
[2017-02-03] MEDS: SENNOSIDES/DOCUSATE SODIUM TAB PO SCH ×2 (09:46→19:59)
[2017-02-03] MEDS: PANTOPRAZOLE SODIUM 40 MG TAB PO SCH (09:46)
[2017-02-03] MEDS: VENLAFAXINE HCL 75 MG TAB PO SCH ×2 (09:46→19:59)
[2017-02-03] MEDS: GABAPENTIN 300 MG CAP PO SCH ×3 (09:46→19:59)
[2017-02-03] MEDS: morphINE SR 30 MG TAB PO SCH ×3 (09:46→19:59)
[2017-02-03 10:07] LABS: ABSOLUTE NRBC COUNT 0.12 10^3/uL (0-0.01); ADD DIFF? YES; ADD MORPH? YES; ADD SCAN? YES; ATYPICAL LYMPHOCYTE FLAG 0 (0-99); FRAGMENT RBC FLAG 20 (0-99); HEMATOCRIT 25.4 % (38.0-47.0); HEMOGLOBIN 7.8 g/dL (12.6-16.3); LIPEMIA HEMOLYSIS FLAG 80 (0-99); MEAN CELL HEMOGLOBIN 29.7 pg (27.9-34.1); MEAN CELL HEMOGLOBIN CONCENTR. 30.7 g/dL (32.4-36.7); MEAN CELL VOLUME 96.6 fL (81.5-99.8); MEAN PLATELET VOLUME 10.5 fL (8.7-11.7); NRBC-AUTO% 0.5 % (0.0-0.2); PLATELET CLUMPS FLAG 0 (0-99); PLATELET COUNT 312 10^3/uL (150-400); RED BLOOD CELL COUNT 2.63 10^6/uL (4.18-5.33)
[2017-02-03 10:12] LABS: LEFT SHIFT FLG 120 (0-99)
[2017-02-03 10:24] LABS: ALANINE AMINOTRANSFERASE 179 IU/L (9-52); ALBUMIN 2.1 g/dL (3.5-5.0); ALKALINE PHOSPHATASE 1136 IU/L (38-126); ANION GAP 5 mEq/L (8-16); ASPARTATE AMINOTRANSFERASE 222 IU/L (14-46); BILIRUBIN,TOTAL 3.7 mg/dL (0.1-1.4); CALCIUM 8.6 mg/dL (8.5-10.4); CARBON DIOXIDE 25 mEq/l (22-31); CHLORIDE 109 mEq/L (97-110); CREATININE 0.6 mg/dL (0.6-1.0); GLOMERULAR FILTRATION RATE > 60; GLUCOSE 98 mg/dL (70-100); POTASSIUM 4.4 mEq/L (3.5-5.2); SODIUM 139 mEq/L (134-144); TOTAL PROTEIN 4.4 g/dL (6.3-8.2)
[2017-02-03 10:36] LABS: BILIRUBIN-CONJUGATED 3.1 mg/dL (0.0-0.5); BILIRUBIN-UNCONJUGATED 0.6 mg/dL (0.0-1.1)
[2017-02-03 10:47] LABS: SCAN POSITIVE
[2017-02-03 10:54] LABS: HYPOCHROMIA 1+; MACROCYTES 1+; POLYCHROMASIA 2+; TOXIC GRANULATION PRESENT
[2017-02-03] MEDS: HYDROmorphONE/DILAUDID 1 MG/ML SYR IVP PRN ×4 (11:39→20:54)
[2017-02-03] MEDS: ENOXAPARIN 80 MG/0.8 ML SYR SC SCH ×2 (11:40→20:55)
[2017-02-03] MEDS: NS 1,000 ML IV SCH (11:40)
--- NOTE | 2017-02-03 12:04 | SOAPPROG ---
SOAP Progress Note Assessment/Plan: Assessment: 1. Pancreatic ca 2. Jaundice, biliary obstruction, status post stent, Cholangitis 3. anemia 4. Possible uti 5. history mesenteric vein thrombosis 6.Diabetes 7. E coli sepsis Plan:Remains quite ill, not much change in LFT's, WBC is rising. Palliative care conference this pm, discussed the situation with daughter 02/02/17 12:32 02/03/17 12:01 Subjective: not very responsive Objective: Vital Signs Temp Pulse Resp BP Pulse Ox 98 F 99 15 148/73 H 94 02/03/17 07:58 02/03/17 09:45 02/03/17 07:58 02/03/17 09:45 02/03/17 07:58 Laboratory Results 02/03/17 09:57 02/03/17 09:57 02/02/17 02/03/17 02/04/17 05:59 05:59 05:59 Intake Total 5338 3601 Output Total 0 401 Balance 5338 3200 PT 36.8 SEC (12.0-15.0) H D 02/02/17 05:00 INR 3.64 (0.83-1.16) H 02/02/17 05:00 ICD10 Worksheet Patient Problems: Problems Problem Status Onset Biliary obstruction Acute Pancreatic cancer Acute Severe sepsis Acute Urinary tract infection Acute Abdominal pain Acute Abdominal pain Acute Deep vein blood clot of left lower extremity Acute Pancreatic cancer Acute Postop check Acute Urinary tract infection Acute
--- NOTE | 2017-02-03 12:53 | PDINTPN ---
Spectral Scientist Progress Note Assessment/Plan: Assessment/plan: 71 F with known pancreatic cancer admitted with cholangitis and obstruction, treated with ERCP and temporary stent. Course complicated by altered mental status, bacteremia, and mesenteric vein thrombosis. Mental status remains abnormal but clinically improved per daughter and RN. * Pancreatic cancer with biliary obstruction. Improved s/p ERCP and stent. Transaminases decreased but no major change in AP or TB. WBC rising. * Cholangitis with E. Coli bacteremia. Remains on Ertepenem which should be adequate for now; low threshold to reculture * Altered mental status - possibly from bacteremia/sepsis, complicated by pain control using Dilaudid. Clearly improved today, though still somnolent. * Palliative care discussion underway 02/03/17 12:51 Objective: Vital Signs Temp Pulse Resp BP Pulse Ox 37.2 C 103 H 16 152/77 H 95 02/03/17 12:00 02/03/17 12:00 02/03/17 12:00 02/03/17 12:00 02/03/17 12:00 Laboratory Results 02/03/17 09:57 02/03/17 09:57 02/02/17 02/03/17 02/04/17 05:59 05:59 05:59 Intake Total 5338 3601 Output Total 0 401 Balance 5338 3200 PT 36.8 SEC (12.0-15.0) H D 02/02/17 05:00 INR 3.64 (0.83-1.16) H 02/02/17 05:00 Physical Exam - Physical Exam General Appearance: no apparent distress, obtunded (but answers yes/no), obese EENT: PERRL/EOMI Neck: supple Respiratory: lungs clear, normal breath sounds, No respiratory distress, No rales, No rhonchi Cardiac/Chest: normal peripheral pulses, regular rate, rhythm, No edema Abdomen: non-tender, soft, No distended Skin: normal color, warm/dry, No cyanosis Extremities: No pedal edema Neuro/Psych: cognition abnormalities, No abnormal architectural inspector II-XII ICD10 Worksheet Patient Problems: Problems Problem Status Onset Biliary obstruction Acute Pancreatic cancer Acute Severe sepsis Acute Urinary tract infection Acute Abdominal pain Acute Abdominal pain Acute Deep vein blood clot of left lower extremity Acute Pancreatic cancer Acute Postop check Acute Urinary tract infection Acute
--- NOTE | 2017-02-03 13:46 | SOAPPROG ---
SOAP Progress Note Assessment/Plan: Assessment: Pancreatic cancer with biliary obstruction and cholangitis s/p biliary stents x2. Still very ill with elevated WBC and decrease MS Mesenteric vein thrombosis anticoagulated Increase WBC Plan: Agree with supportive care. To have palliative care conference No new GI rec Will sign off for now but please reconsult if needed 02/03/17 13:43 Subjective: CC jaundice Pt with altered mental status open eyes but does not communicate Objective: Vital Signs Temp Pulse Resp BP Pulse Ox 37.2 C 103 H 16 152/77 H 95 02/03/17 12:00 02/03/17 12:00 02/03/17 12:00 02/03/17 12:00 02/03/17 12:00 Laboratory Results 02/03/17 09:57 02/03/17 09:57 02/02/17 02/03/17 02/04/17 05:59 05:59 05:59 Intake Total 5338 3601 Output Total 0 401 Balance 5338 3200 PT 36.8 SEC (12.0-15.0) H D 02/02/17 05:00 INR 3.64 (0.83-1.16) H 02/02/17 05:00 Physical Exam - Physical Exam General Appearance: no apparent distress Respiratory: lungs clear Cardiac/Chest: regular rate, rhythm Abdomen: non-tender, soft ICD10 Worksheet Patient Problems: Problems Problem Status Onset Biliary obstruction Acute Pancreatic cancer Acute Severe sepsis Acute Urinary tract infection Acute Abdominal pain Acute Abdominal pain Acute Deep vein blood clot of left lower extremity Acute Pancreatic cancer Acute Postop check Acute Urinary tract infection Acute
--- NOTE | 2017-02-03 15:07 | HOSPPROG ---
Hospitalist Progress Note Assessment/Plan: * acute cholangitis due to pancreatic cancer obstruction with E coli bacteremia * multiple drug resistance * id will see the patient * sensitive to Invanz * not improving though * acute encephalopathy * due to acute sepsis * sepsis * still tachycardic although lactate has normalized * history of mesenteric vein thrombosis and DVT recently with ongoing abdominal pain * restart anticoagulation in the form of Lovenox * was on Xarelto prior to admission * history of obstructive sleep apnea * history of Parkinson's * type 2 diabetes * social - had significant discussion with daughter in regards to poor overall prognosis. In spite of chemotherapy her pancreatic lesions have been increasing and now causing ductal dilatation. In spite of antibiotics her white blood cell count has worsened even though the E coli should be sensitive to Invanz. her encephalopathy has not improved. daughter agrees to DNR status and will meet with palliative Care to discuss possible transition to hospice Subjective: continues to be somnolent although daughter says that she is a little bit better. Has also continued to be confused Objective: Vital Signs Temp Pulse Resp BP Pulse Ox 37.2 C 103 H 16 152/77 H 95 02/03/17 12:00 02/03/17 12:00 02/03/17 12:00 02/03/17 12:00 02/03/17 12:00 Laboratory Results 02/03/17 09:57 02/03/17 09:57 02/02/17 02/03/17 02/04/17 05:59 05:59 05:59 Intake Total 5338 3601 Output Total 0 401 Balance 5338 3200 PT 36.8 SEC (12.0-15.0) H D 02/02/17 05:00 INR 3.64 (0.83-1.16) H 02/02/17 05:00 discussed with pulmonology - Time Spent With Patient Time Spent with Patient: greater than 35 minutes (discussing goals of care and poor prognosis) Time Spent with Patient: Greater than 35 minutes spent on this patients care, greater than 50% of time spent counseling, educating, and coordinating care regarding the above mentioned plan. - Physical Exam Constitutional: no apparent distress, appears nourished, not in pain, chronically ill appearing Ears, Nose, Mouth, Throat: moist mucous membranes Cardiovascular: tachycardia Respiratory: no respiratory distress, no rales or rhonchi, clear to auscultation Gastrointestinal: normoactive bowel sounds, tenderness ( diffuse possibly more on the right upper quadrant epigastric) Skin: warm Neurologic: No AAOx3 Psychiatric: encephalopathic ICD10 Worksheet Patient Problems: Problems Problem Status Onset Biliary obstruction Acute Pancreatic cancer Acute Severe sepsis Acute Urinary tract infection Acute Abdominal pain Acute Abdominal pain Acute Deep vein blood clot of left lower extremity Acute Pancreatic cancer Acute Postop check Acute Urinary tract infection Acute
--- NOTE | 2017-02-03 15:41 | PDPCPN ---
Palliative Care Progress Note Assessment/Plan: Referring provider: Dr Zamarripa Reason for consult: Complex medical decision making Symptom control HPI: Rachel Silva is a 71 yo female with PMH DM, Parkinson, and met pancreatic cancer with recent admission for mesenteric vein thrombosis admitted to the hospital for increased abdominal pain, confusion and weakness. found to have elevated LFTs with cholangitis s/p ERCP with temporary stent placement. Has been recieivng chemo as outpt with mixed results. Hospitalization complicated by bacteremia with ecoli and ongoing elevated LFTs and leukocytosis with possible cancer progression as root cause. Palliative care consulted for complex medical decision making. Met with daughter Divine outside of the room. Rachel was sleeping but still confused and "the same" per daughter. Divine discussed her mom and her had had detailed discussions about her end of life when she was dx. 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 Divine stated they spoke about her wishes for end of life which included being at home and not being hooked up to any machines. Divine feels this decline is cancer progression and is just hoping the ultrasound will show this so she can be confident in her decision making about end of life. She stated her mom would not have "wanted this" and instead would want to focus on comfort care only. She has a total of 4 children with 2 living locally. Divine is hoping the family can make their way to town to spend their mother's last moments with her. She feels they will all be gathered by the weekend. We spoke about hospice as a way to continue comfort care if Rachel is able to leave the hospital. Assessment: Physical: - Pain: abdominal pain -continue gabapentin 300mg TID - Dilaudid available IV or PO PRN - Fatigue/weakness - full nursing support - PT/OT as able - constipation - at risk while using opiates. - Continue bowel regimen with senna and colace Emotional/psychological: Acute encephalopathy: with hallucinations - maintain normal routines. she is comforted by her daughter being present Advanced Care Planning: Is patient decisional?: No Code Status: DNR/DNI POA: daughters Divine and Moni are MDPOA. Plan: Divine is hoping to get a final answer from ultrasound being done today to determine if this decline is cancer related progression. She would like to move towards comfort care after confirmation. The rest of her family is expected by this weekend. Subjective: unable to assess, lethargic Objective: Social History: Retired, moved from [place]. Has 4 children all involved. Lives with daughter Divine Medication list reviewed ROS: General: fatigue, weakness ENT: negative Resp: negative GI: poor appetite : negative MS: abdominal pain Skin: negative Neuro: negative Psych: hallucinations Functional assessment: PPS: 30% Functional status: dependent on ADLs, IADLs Vital Signs Temp Pulse Resp BP Pulse Ox 37.0 C 101 H 14 141/62 H 95 02/03/17 15:30 02/03/17 15:30 02/03/17 15:30 02/03/17 15:30 02/03/17 15:30 Laboratory Results 02/03/17 09:57 02/03/17 09:57 02/02/17 02/03/17 02/04/17 05:59 05:59 05:59 Intake Total 5338 3601 Output Total 0 401 Balance 5338 3200 PT 36.8 SEC (12.0-15.0) H D 02/02/17 05:00 INR 3.64 (0.83-1.16) H 02/02/17 05:00 Physical Exam - Physical Exam General Appearance: other (sleeping) Respiratory: No respiratory distress, No accessory muscle use Skin: warm/dry, jaundice Extremities: pedal edema Neuro/Psych: disoriented to place, disoriented to time, other (confused when awake with hallunicnations ) ICD10 Worksheet Patient Problems: Problems Problem Status Onset Biliary obstruction Acute Palliative care encounter Acute Pancreatic cancer Acute Severe sepsis Acute Urinary tract infection Acute Abdominal pain Acute Abdominal pain Acute Deep vein blood clot of left lower extremity Acute Pancreatic cancer Acute Postop check Acute Urinary tract infection Acute - ICD10 Problem Qualifiers (1) Palliative care encounter
[2017-02-03 18:22] LABS: PLATELET ESTIMATE ADEQUATE (ADEQ)
--- NOTE | 2017-02-03 18:58 | PCMIDPN ---
Assessment/Plan: Called daughter and gave US results. Stent functioning, but unexpected finding suggest cholecystitis. Hemodynamically stable. Family primary concern is if cancer has progressed they would want minimal further interventions. Ordered CT scan to re-eval cancer + more details with GB. Reviewed treatment options of cholecystitis including cholecystectomy (not likely say due to illness) or gallbladder drain placed by IR. Plan to continue IV antibiotics Objective: Vital Signs Temp Pulse Resp BP Pulse Ox 37.0 C 101 H 14 141/62 H 95 02/03/17 15:30 02/03/17 15:30 02/03/17 15:30 02/03/17 15:30 02/03/17 15:30 Laboratory Results 02/03/17 09:57 02/03/17 09:57 02/02/17 02/03/17 02/04/17 05:59 05:59 05:59 Intake Total 5338 3601 Output Total 0 401 Balance 5338 3200 ICD10 Worksheet Patient Problems: Problems Problem Status Onset Biliary obstruction Acute Palliative care encounter Acute Pancreatic cancer Acute Severe sepsis Acute Urinary tract infection Acute Abdominal pain Acute Abdominal pain Acute Deep vein blood clot of left lower extremity Acute Pancreatic cancer Acute Postop check Acute Urinary tract infection Acute
[2017-02-03] MEDS ORDERED: IOPAMIDOL (ISOVUE-300) 100 ML BTL IV ONE (19:12)
--- NOTE | 2017-02-03 19:25 | GCON ---
[f rep st] CONSULTATION INFECTIOUS DISEASE CONSULTATION DATE OF CONSULTATION: 02/03/2017 REASON FOR CONSULTATION: Escherichia coli bacteremia. HISTORY OF PRESENT ILLNESS: A 71-year-old female with metastatic pancreatic cancer currently on efrain vage therapy with gemcitabine and Abraxane, who was in her usual state of health until approximately 4 days prior to admission on 02/01/2017. She described progressive increasing weakness and abdomin al pain associated with 3 days of confusion and visual hallucinations. Upon admission, the patient was found to have biliary obstruction due to increased size of tumor at the pancreatic head causing a distended gallbladder that was 12 x 4 cm, as well as flaring debris in the distal common bile duct . On admission, patient was found to have a significant leukocytosis and elevated LFTs associated w ith elevated bilirubin. GI was consulted and patient underwent an ERCP on the same date with stent insertion. Pus and bile were noted after insertion of the biliary stent. Since procedure, patient has been on IV ertapenem and mental status has improved minimally. She has had continued low-grade temperatures and has a persistent leukocytosis of 25,000 with 15% bands. Infectious Disease is aske d to consult for management of E coli bacteremia also determined on the day of admission. Yesterday , the patient also had a significant fever to 38.8. The patient is unable to give a history due to altered mental status. Her daughter was at bedside who provided the majority of the history, as wel l as review of records. 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 PAST SURGICAL HISTORY: Hysterectomy, appendectomy, and left total knee arthroplasty. MEDICATIONS: Include ertapenem 1 g IV daily (started 02/01). On admission, she also received a dos e of 1 g of ceftriaxone. She is currently on insulin, Tylenol, Lovenox, Dilaudid, metoprolol as nee ded and 50 mg daily, Reglan, Zofran, MiraLAX, Senokot, and venlafaxine 75 mg twice daily. ALLERGIES: NKDA. SOCIAL HISTORY: No tobacco, no alcohol. She is originally from [place]. She has 4 children. She is retired from [email or web address]. FAMILY HISTORY: Positive for a history of cancer. REVIEW OF SYSTEMS: A complete 10-point review of systems was performed and was negative, except as mentioned in the HPI. PHYSICAL EXAM: VITAL SIGNS: Blood pressure 141/62, heart rate 101, respiratory rate 14, saturation 95% on 5 L, temperature 37, T-max over the last 24 hours is 38.8. GENERAL: This is a mildly obese woman lying in bed who follows commands, but is not able to carry on a conversation. She has notab le pallor. HEENT: She has obvious alopecia. Oropharynx dry. No oral lesions. Fair dentition. N FOSTER: Supple. No lymphadenopathy. CARDIOVASCULAR: Tachycardic, regular rate. CHEST: Clear to au scultation bilaterally. ABDOMEN: Soft, nontender. Bowel sounds are present. EXTREMITIES: No clu bbing, cyanosis, or edema. NEUROLOGICAL: She was moving all 4 extremities, was somewhat sluggish, and was disoriented. SKIN: No rashes. LINES AND DRAINS: She has a PICC line in place in her righ t upper extremity and a Mooney in place. LABORATORY: White count was 16 on admission and is 25 today, hematocrit is 22. AST 419, ALT 219, a lkaline phosphatase 1195, total bilirubin 4.0. Blood cultures positive for E coli only susceptible to ertapenem, meropenem, and Zosyn; shows suscep tibility to cefepime, but not clear if that is reliable. Imaging as per HPI. ASSESSMENT AND PLAN: This is an unfortunate 71-year-old woman with metastatic pancreatic cancer who presents with sepsis secondary to Escherichia coli bacteremia due to biliary obstruction from pancr eatic head mass. Patient had a stent placement on the , but since that time has had minimal imp rovement with persistent and worsening leukocytosis, ongoing fever, and minimal changes in her LFTs. Suspect there could be ongoing obstruction, as patient is on adequate antibiotic therapy. Also co uld consider other causes of persistent leukocytosis and fever such as line infection or Clostridium difficile. RECOMMENDATIONS: 1. Would repeat imaging of the liver to assess if persistent obstruction. May have to consider fur ther imaging with CT. 2. Continue ertapenem. 3. I discussed with patient's daughter overall poor prognosis with progression of cancer and now bi liary obstruction which can cause ongoing recurrent problems with infection. Based on imaging, if e vidence of progressive disease, daughter feels that it would be in her mother's desires to potential ly withdrawal ongoing treatment. Will await further studies and guidance from Palliative Care team. Thank you for this consultation. /[id number]/MODL
[2017-02-03] MEDS: ERTAPENEM 1 GM in NS 100 ML IV SCH (20:58)
[2017-02-04] MEDS: HYDROmorphONE/DILAUDID 1 MG/ML SYR IVP PRN ×8 (01:20→23:58)
[2017-02-04] MEDS ORDERED: HALOPERIDOL LACT 5 MG/ML INJ IVP PRN (02:38)
[2017-02-04 04:43] LABS: ABSOLUTE NRBC COUNT 0.12 10^3/uL (0-0.01); ADD DIFF? YES; ADD MORPH? YES; ADD SCAN? NO; ATYPICAL LYMPHOCYTE FLAG 30 (0-99); FRAGMENT RBC FLAG 40 (0-99); HEMATOCRIT 22.5 % (38.0-47.0); LEFT SHIFT FLG 70 (0-99); LIPEMIA HEMOLYSIS FLAG 80 (0-99); MEAN CELL HEMOGLOBIN 29.4 pg (27.9-34.1); MEAN CELL HEMOGLOBIN CONCENTR. 30.7 g/dL (32.4-36.7); MEAN CELL VOLUME 95.7 fL (81.5-99.8); MEAN PLATELET VOLUME 11.1 fL (8.7-11.7); NRBC-AUTO% 0.5 % (0.0-0.2); PLATELET CLUMPS FLAG 10 (0-99); PLATELET COUNT 247 10^3/uL (150-400); RED BLOOD CELL COUNT 2.35 10^6/uL (4.18-5.33)
[2017-02-04 04:56] LABS: HEMOGLOBIN 6.9 g/dL (12.6-16.3); RED CELL DISTRIBUTION WIDTH 23.9 % (11.5-15.2)
[2017-02-04 06:05] LABS: HYPOCHROMIA 1+; PLATELET ESTIMATE ADEQUATE (ADEQ); POLYCHROMASIA 2+; TOXIC GRANULATION PRESENT
[2017-02-04] MEDS: INSULIN REGULAR HUMAN 100 UNIT/ML SC SCH ×4 (07:30→19:41)
[2017-02-04] MEDS: ONDANSETRON 4 MG/2 ML VIAL IVP PRN (08:14)
[2017-02-04] MEDS: GABAPENTIN 300 MG CAP PO SCH ×3 (09:00→19:42)
[2017-02-04] MEDS: PANTOPRAZOLE SODIUM 40 MG TAB PO SCH (09:00)
[2017-02-04] MEDS: SENNOSIDES/DOCUSATE SODIUM TAB PO SCH ×2 (09:00→19:42)
[2017-02-04] MEDS: VENLAFAXINE HCL 75 MG TAB PO SCH ×2 (09:00→19:30)
[2017-02-04] MEDS: ENOXAPARIN 80 MG/0.8 ML SYR SC SCH (09:40)
--- NOTE | 2017-02-04 09:52 | HOSPPROG ---
Hospitalist Progress Note Assessment/Plan: 71 yo f w metastatic pancreatic CA, progressive despite therapy, mesenteric vein thrombosis, now w biliary obstruction, cholangitis and cholecyctitis as welol as delirium and anemia acute cholangitis due to pancreatic cancer obstruction with E coli bacteremia * multiple drug resistance * id seeing * sensitive to Invanz * not improving though imaging and ruq pain suggest she has concomitant cholecystitis this may explain lack of improvement discussed w ID and family- will persure percutaneous gb drain in hopes of improving mental status enough to allow her to go home w hospice ordered for today lovenox held anemia: no signs acute blood loss transfuse 2 untis today acute encephalopathy * due to acute sepsis requiring prn haldol sepsis still tachycardic although lactate has normalized source is biliary system history of mesenteric vein thrombosis and DVT recently with ongoing abdominal pain * restart anticoagulation in the form of Lovenox * was on Xarelto prior to admission history of obstructive sleep apnea history of Parkinson's type 2 diabetes plan of care: palliative gb drain family acknowledges risks of procedure and doesnt wish to pursue additional invasive procedures should the per gb drain be unsuccessful DNR high risk Subjective: case d/w dr schultz and dr dahl. tele: sinus tach (interp by me) Objective: Vital Signs Temp Pulse Resp BP Pulse Ox 36.8 C 114 H 20 142/70 H 95 02/04/17 07:47 02/04/17 07:47 02/04/17 07:47 02/04/17 07:47 02/04/17 07:47 Laboratory Results 02/04/17 04:39 02/03/17 09:57 02/03/17 02/04/17 02/05/17 05:59 05:59 05:59 Intake Total 3601 4328 Output Total 401 550 Balance 3200 3778 PT 36.8 SEC (12.0-15.0) H D 02/02/17 05:00 INR 3.64 (0.83-1.16) H 02/02/17 05:00 - Physical Exam Constitutional: no apparent distress, appears nourished, other (alert but confused) Eyes: PERRL, No anicteric sclera Ears, Nose, Mouth, Throat: moist mucous membranes, hearing normal Cardiovascular: regular rate and rhythym, tachycardia, No systolic murmur Respiratory: no respiratory distress, no rales or rhonchi Gastrointestinal: robbins's sign, No guarding, No rebound Genitourinary: No dempsey in urethra Skin: warm, normal color Musculoskeletal: full muscle strength, no muscle tenderness Neurologic: sensation intact bilaterally, No AAOx3 Psychiatric: interacting appropriately ICD10 Worksheet Patient Problems: Problems Problem Status Onset Biliary obstruction Acute Palliative care encounter Acute Pancreatic cancer Acute Severe sepsis Acute Urinary tract infection Acute Abdominal pain Acute Abdominal pain Acute Deep vein blood clot of left lower extremity Acute Pancreatic cancer Acute Postop check Acute Urinary tract infection Acute
--- NOTE | 2017-02-04 09:59 | PCMIDPN ---
Assessment/Plan: E coli bacteremia associated with biliary obstruction due to pancreatic cancer/ cholangitis. Lack of improvement likely due to cholecystitis reflected in imaging, right upper quadrant abdominal pain, persistent leukocytosis and persistent altered mental status. In addition, CT demonstrated progression of pancreatic cancer. No new LFTs today, but yesterday there was 50% improvement - stent placed by GI functioning. --continue ertapenem for now --discussed possibility percutaneous drainage of gallbladder with Dr. Owens who will review additional risk with the family and make a final decision about this planned intervention. microbiology 02/01 blood cx 2/2 E coli 02/03 blood cx 2 pending Subjective: Discussed CT findings with the daughter and son at bedside demonstrating progression. Discussed pros and cons of further interventions including antibiotics and percutaneous gallbladder drain. Family desires percutaneous gallbladder drain with hopes that will improve mental status and allow patient to go home on home hospice. CT scan was reviewed in detail with the family. Objective: Vital Signs Temp Pulse Resp BP Pulse Ox 36.8 C 114 H 20 142/70 H 95 02/04/17 07:47 02/04/17 07:47 02/04/17 07:47 02/04/17 07:47 02/04/17 07:47 Laboratory Results 02/04/17 04:39 02/03/17 09:57 02/03/17 02/04/17 02/05/17 05:59 05:59 05:59 Intake Total 3601 4328 Output Total 401 550 Balance 3200 3778 - Physical Exam General Appearance: no apparent distress, obese EENT: pale conjunctiva, dry mucous membranes Respiratory: No accessory muscle use Neck: supple Cardiac/Chest: tachycardia Extremities: pedal edema Abdomen: soft, tender (Right upper quadrant) Skin: pallor, No rash Neuro/Psych: cognition abnormalities - Line/s RUE PICC Lines: No drainage, No erythema - Time Spent With Patient Time Spent with Patient: greater than 35 minutes Time Spent with Patient: Greater than 35 minutes spent on this patients care, greater than 50% of time spent counseling, educating, and coordinating care regarding the above mentioned plan. ICD10 Worksheet Patient Problems: Problems Problem Status Onset Biliary obstruction Acute Palliative care encounter Acute Pancreatic cancer Acute Severe sepsis Acute Urinary tract infection Acute Abdominal pain Acute Abdominal pain Acute Deep vein blood clot of left lower extremity Acute Pancreatic cancer Acute Postop check Acute Urinary tract infection Acute
[2017-02-04] MEDS: morphINE SR 30 MG TAB PO SCH ×3 (10:04→23:57)
[2017-02-04 10:19] LABS: INR 2.76 (0.83-1.16); PROTIME(PATIENT) 29.5 SEC (12.0-15.0)
[2017-02-04] MEDS: METOPROLOL SUCCINATE XR 50 MG TAB PO SCH (10:33)
--- NOTE | 2017-02-04 11:09 | SOAPPROG ---
SOAP Progress Note Assessment/Plan: Assessment: 1. Pancreatic ca 2. Jaundice, biliary obstruction, status post stent, Cholangitis, possible cholecystitis 3. anemia 4. Possible uti 5. history mesenteric vein thrombosis 6.Diabetes 7. E coli sepsis Plan:Remains quite ill, ct scan showing evidence of progression, family is leaning towards hospice, scheduled for drainage gallbladder today. Transfusion today 02/02/17 12:32 02/03/17 12:01 02/04/17 11:04 02/04/17 11:09 Subjective: a bit more alert Objective: Vital Signs Temp Pulse Resp BP Pulse Ox 98.2 F 114 H 20 142/70 H 95 02/04/17 07:47 02/04/17 07:47 02/04/17 07:47 02/04/17 07:47 02/04/17 07:47 Laboratory Results 02/04/17 04:39 02/03/17 09:57 02/03/17 02/04/17 02/05/17 05:59 05:59 05:59 Intake Total 3601 4328 Output Total 401 550 Balance 3200 3778 PT 29.5 SEC (12.0-15.0) H 02/04/17 09:55 INR 2.76 (0.83-1.16) H 02/04/17 09:55 ICD10 Worksheet Patient Problems: Problems Problem Status Onset Biliary obstruction Acute Palliative care encounter Acute Pancreatic cancer Acute Severe sepsis Acute Urinary tract infection Acute Abdominal pain Acute Abdominal pain Acute Deep vein blood clot of left lower extremity Acute Pancreatic cancer Acute Postop check Acute Urinary tract infection Acute
--- NOTE | 2017-02-04 12:15 | PDINTPN ---
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 Course complicated by altered mental status, bacteremia, and mesenteric vein thrombosis. Mental status remains abnormal but clinically improved per daughter and RN. * Pancreatic cancer with biliary obstruction. Improved s/p ERCP and stent, but repeat CT shows evidence of progression of disease. Family likely to elect hospice at this time * Cholangitis with E. Coli bacteremia. Remains on Ertepenem which should be adequate. Planning PCT today in hopes of improving alertness. * Altered mental status - possibly from bacteremia/sepsis, complicated by pain control using Dilaudid. * Palliative care discussion as above. Objective: Vital Signs Temp Pulse Resp BP Pulse Ox 36.8 C 114 H 22 H 146/84 H 92 02/04/17 11:36 02/04/17 11:36 02/04/17 11:36 02/04/17 11:36 02/04/17 11:36 Laboratory Results 02/04/17 04:39 02/03/17 09:57 02/03/17 02/04/17 02/05/17 05:59 05:59 05:59 Intake Total 3601 4328 Output Total 401 550 Balance 3200 3778 PT 29.5 SEC (12.0-15.0) H 02/04/17 09:55 INR 2.76 (0.83-1.16) H 02/04/17 09:55 Physical Exam - Physical Exam General Appearance: no apparent distress, obese, other (somnolent) EENT: PERRL/EOMI Neck: supple Respiratory: lungs clear, normal breath sounds, No respiratory distress Cardiac/Chest: normal peripheral pulses, regular rate, rhythm Abdomen: non-tender, soft, No distended Skin: normal color, warm/dry Extremities: No pedal edema Neuro/Psych: cognition abnormalities, No abnormal drive man II-XII ICD10 Worksheet Patient Problems: Problems Problem Status Onset Biliary obstruction Acute Palliative care encounter Acute Pancreatic cancer Acute Severe sepsis Acute Urinary tract infection Acute Abdominal pain Acute Abdominal pain Acute Deep vein blood clot of left lower extremity Acute Pancreatic cancer Acute Postop check Acute Urinary tract infection Acute
[2017-02-04 15:02] LABS: HEMATOCRIT 23.8 % (38.0-47.0); HEMOGLOBIN 7.6 g/dL (12.6-16.3)
[2017-02-04 15:11] LABS: INR 2.16 (0.83-1.16); PROTIME(PATIENT) 24.3 SEC (12.0-15.0)
[2017-02-04 15:12] LABS: APTT 32.4 SEC (23.0-38.0)
[2017-02-04] MEDS: NS 1,000 ML IV SCH (17:22)
[2017-02-04] MEDS: ERTAPENEM 1 GM in NS 100 ML IV SCH (19:31)
[2017-02-05] MEDS: HYDROmorphONE/DILAUDID 1 MG/ML SYR IVP PRN ×6 (02:54→17:10)
[2017-02-05 04:51] LABS: ABSOLUTE NRBC COUNT 0.15 10^3/uL (0-0.01); ADD DIFF? YES; ATYPICAL LYMPHOCYTE FLAG 50 (0-99); FRAGMENT RBC FLAG 40 (0-99); HEMATOCRIT 26.8 % (38.0-47.0); HEMOGLOBIN 8.6 g/dL (12.6-16.3); LIPEMIA HEMOLYSIS FLAG 80 (0-99); MEAN CELL HEMOGLOBIN 30.2 pg (27.9-34.1); MEAN CELL HEMOGLOBIN CONCENTR. 32.1 g/dL (32.4-36.7); MEAN PLATELET VOLUME 11.9 fL (8.7-11.7); NRBC-AUTO% 0.6 % (0.0-0.2); PLATELET CLUMPS FLAG 0 (0-99); PLATELET COUNT 185 10^3/uL (150-400); RED BLOOD CELL COUNT 2.85 10^6/uL (4.18-5.33)
[2017-02-05 04:54] LABS: ADD MORPH? NO; ADD SCAN? NO; LEFT SHIFT FLG 100 (0-99); RED CELL DISTRIBUTION WIDTH 21.8 % (11.5-15.2)
[2017-02-05 05:01] LABS: INR 2.01 (0.83-1.16); PROTIME(PATIENT) 22.9 SEC (12.0-15.0)
[2017-02-05 05:35] LABS: HYPOCHROMIA 1+; PLATELET ESTIMATE ADEQUATE (ADEQ); POLYCHROMASIA 1+
[2017-02-05] MEDS: PANTOPRAZOLE SODIUM 40 MG TAB PO SCH (08:03)
[2017-02-05] MEDS: INSULIN REGULAR HUMAN 100 UNIT/ML SC SCH ×4 (08:03→20:22)
[2017-02-05] MEDS: SENNOSIDES/DOCUSATE SODIUM TAB PO SCH ×2 (08:03→20:22)
[2017-02-05] MEDS: GABAPENTIN 300 MG CAP PO SCH ×3 (08:04→20:22)
[2017-02-05] MEDS: morphINE SR 30 MG TAB PO SCH ×3 (08:41→22:09)
[2017-02-05] MEDS: VENLAFAXINE HCL 75 MG TAB PO SCH ×2 (08:43→20:22)
[2017-02-05 09:32] LABS: ALANINE AMINOTRANSFERASE 96 IU/L (9-52); ALBUMIN 2.2 g/dL (3.5-5.0); ALKALINE PHOSPHATASE 772 IU/L (38-126); ANION GAP 9 mEq/L (8-16); ASPARTATE AMINOTRANSFERASE 65 IU/L (14-46); BILIRUBIN,TOTAL 2.3 mg/dL (0.1-1.4); CALCIUM 8.4 mg/dL (8.5-10.4); CARBON DIOXIDE 27 mEq/l (22-31); CHLORIDE 107 mEq/L (97-110); CREATININE 0.4 mg/dL (0.6-1.0); GLOMERULAR FILTRATION RATE > 60; GLUCOSE 116 mg/dL (70-100); POTASSIUM 3.6 mEq/L (3.5-5.2); SODIUM 143 mEq/L (134-144); TOTAL PROTEIN 4.8 g/dL (6.3-8.2)
[2017-02-05 09:39] LABS: BILIRUBIN-CONJUGATED 1.5 mg/dL (0.0-0.5); BILIRUBIN-UNCONJUGATED 0.8 mg/dL (0.0-1.1)
--- NOTE | 2017-02-05 10:03 | PCMIDPN ---
Assessment/Plan: E coli bacteremia associated with biliary obstruction due to pancreatic cancer/ cholangitis. Lack of improvement likely due to cholecystitis and persistent obstruction in an different area in the biliary system (stent working). IR drainage today. Continued improvement in LFTs, mental status slightly improved. Persistent leukocytosis. Blood cultures demonstrate clearance of bacteremia so far. --continue ertapenem 1 g IV daily for 1 week after drain placed, stop 02/12 --ID to follow peripherally microbiology 02/01 blood cx 2/2 E coli 02/03 blood cx 2 : NGTD Subjective: More awake her family report (son, daughter, sister) Slept better last night Still complaining of back pain IR procedure today at 1300 Objective: Vital Signs Temp Pulse Resp BP Pulse Ox 36.4 C 74 20 163/82 H 93 02/04/17 19:00 02/05/17 06:19 02/04/17 19:00 02/05/17 08:00 02/05/17 08:00 Laboratory Results 02/05/17 04:40 02/05/17 09:10 02/04/17 02/05/17 02/06/17 05:59 05:59 05:59 Intake Total 4328 1650 Output Total 550 400 250 Balance 3778 1250 -250 - Physical Exam General Appearance: alert, obese EENT: pale conjunctiva, dry mucous membranes, No scleral icterus Respiratory: No accessory muscle use, No crackles Neck: supple Cardiac/Chest: regular rate, rhythm Extremities: pedal edema Abdomen: soft, tender (RUQ), No guarding, No rebound Skin: pallor, No rash Neuro/Psych: alert, confused - Line/s RUE PICC Lines: No drainage, No erythema - Time Spent With Patient Time Spent with Patient: greater than 35 minutes (Discussed antibiotic plan with patient daughter and son and agreeable. After IR drainage current plan is to go home with hospice.) Time Spent with Patient: Greater than 35 minutes spent on this patients care, greater than 50% of time spent counseling, educating, and coordinating care regarding the above mentioned plan. ICD10 Worksheet Patient Problems: Problems Problem Status Onset Biliary obstruction Acute Palliative care encounter Acute Pancreatic cancer Acute Severe sepsis Acute Urinary tract infection Acute Abdominal pain Acute Abdominal pain Acute Deep vein blood clot of left lower extremity Acute Pancreatic cancer Acute Postop check Acute Urinary tract infection Acute
--- NOTE | 2017-02-05 11:59 | SOAPPROG ---
SOAP Progress Note Assessment/Plan: Assessment: 1. Pancreatic ca 2. Jaundice, biliary obstruction, status post stent, Cholangitis, possible cholecystitis 3. anemia, s/p transfusion 4. Possible uti 5. history mesenteric vein thrombosis 6.Diabetes 7. E coli sepsis Plan:Remains quite ill, ct scan showing evidence of progression, family is leaning towards hospice, scheduled for drainage gallbladder today. Bilirubin a bit better post drainage. 02/02/17 12:32 02/03/17 12:01 02/04/17 11:04 02/04/17 11:09 02/05/17 11:58 Subjective: arousable , confused, RUQ pain Objective: Vital Signs Temp Pulse Resp BP Pulse Ox 97.5 F 74 20 163/82 H 93 02/04/17 19:00 02/05/17 06:19 02/04/17 19:00 02/05/17 08:00 02/05/17 08:00 Laboratory Results 02/05/17 04:40 02/05/17 09:10 02/04/17 02/05/17 02/06/17 05:59 05:59 05:59 Intake Total 4328 1650 Output Total 550 400 250 Balance 3778 1250 -250 PT 22.9 SEC (12.0-15.0) H 02/05/17 04:40 INR 2.01 (0.83-1.16) H 02/05/17 04:40 ICD10 Worksheet Patient Problems: Problems Problem Status Onset Biliary obstruction Acute Palliative care encounter Acute Pancreatic cancer Acute Severe sepsis Acute Urinary tract infection Acute Abdominal pain Acute Abdominal pain Acute Deep vein blood clot of left lower extremity Acute Pancreatic cancer Acute Postop check Acute Urinary tract infection Acute
[2017-02-05] MEDS ORDERED: PROPOFOL 200 MG/20 ML VIAL ONE (12:53)
[2017-02-05] MEDS ORDERED: fentaNYL 100 MCG/2 ML INJ ONE ×3 (12:54→15:32)
[2017-02-05] MEDS ORDERED: IOPAMIDOL (ISOVUE-300) 100 ML BTL IV ONE (14:02)
--- NOTE | 2017-02-05 14:36 | POSTOPPROG ---
Post Op Note Date of Operation: 02/05/17 Surgeon: Shanti Pérez Anesthesia: GET(General Endotracheal) Pre-op Diagnosis: pancreatic CA. Post-op Diagnosis: same Indication: cholecystitis, possible cholangitis Procedure: GB drain placement; biliary drain placement Findings: Pus in GB; clear bile out of LT lobe Inf/Abcess present in the surg proc area at time of surgery?: Yes Depth: Organ Space (GB) EBL: Minimal Complications: None Drains: Other (10 FR GB drain; 8FR LT biliary drain.)
[2017-02-05] MEDS ORDERED: KETOROLAC 30 MG/1 ML SDV ONE (15:08)
--- NOTE | 2017-02-05 15:34 | HOSPPROG ---
Hospitalist Progress Note Assessment/Plan: 71 yo f w metastatic pancreatic CA, progressive despite therapy, mesenteric vein thrombosis, now w biliary obstruction, cholangitis and cholecyctitis as welol as delirium and anemia acute cholangitis due to pancreatic cancer obstruction with E coli bacteremia * multiple drug resistance * id seeing * sensitive to Invanz * not improving though imaging and ruq pain suggest she has concomitant cholecystitis now w drains in gb and L biliary system based on IR report, GB was culprit anemia: no signs acute blood loss transfused 2 untis 02/04 acute encephalopathy * due to acute sepsis requiring prn haldol improving suspect will furtherimprove following gb drainage sepsis still tachycardic although lactate has normalized source is biliary system history of mesenteric vein thrombosis and DVT recently with ongoing abdominal pain * restart anticoagulation in the form of Lovenox * was on Xarelto prior to admission history of obstructive sleep apnea history of Parkinson's type 2 diabetes plan of care: palliative gb drain family acknowledges risks of procedure and doesnt wish to pursue additional invasive procedures should the per gb drain be unsuccessful DNR high risk Subjective: case discussed w fuad dahl and iza. pus in GB, clear bile in L biliary system Objective: Vital Signs Temp Pulse Resp BP Pulse Ox 36.4 C 74 20 160/106 H 94 02/04/17 19:00 02/05/17 06:19 02/04/17 19:00 02/05/17 12:58 02/05/17 12:00 Laboratory Results 02/05/17 04:40 02/05/17 09:10 02/04/17 02/05/17 02/06/17 05:59 05:59 05:59 Intake Total 4328 1650 Output Total 550 400 250 Balance 3778 1250 -250 PT 22.9 SEC (12.0-15.0) H 02/05/17 04:40 INR 2.01 (0.83-1.16) H 02/05/17 04:40 - Physical Exam Constitutional: other (uncomfortable (seen in pacu)) Eyes: PERRL, anicteric sclera Ears, Nose, Mouth, Throat: moist mucous membranes, hearing normal Cardiovascular: regular rate and rhythym, no murmur, rub, or gallop Respiratory: no respiratory distress, no rales or rhonchi Gastrointestinal: normoactive bowel sounds, soft, non-tender abdomen, No guarding, No rebound Genitourinary: No dempsey in urethra Skin: warm, normal color Musculoskeletal: full muscle strength, no muscle tenderness Neurologic: AAOx3 Psychiatric: No interacting appropriately ICD10 Worksheet Patient Problems: Problems Problem Status Onset Biliary obstruction Acute Palliative care encounter Acute Pancreatic cancer Acute Severe sepsis Acute Urinary tract infection Acute Abdominal pain Acute Abdominal pain Acute Deep vein blood clot of left lower extremity Acute Pancreatic cancer Acute Postop check Acute Urinary tract infection Acute
[2017-02-05] MEDS: NS 1,000 ML IV SCH (18:07)
[2017-02-05] MEDS: ERTAPENEM 1 GM in NS 100 ML IV SCH (20:22)
[2017-02-06] MEDS: HYDROmorphONE/DILAUDID 2 MG TAB PO PRN ×2 (02:03→09:48)
[2017-02-06] MEDS: NS 1,000 ML IV SCH (04:51)
[2017-02-06 05:48] LABS: ABSOLUTE NRBC COUNT 0.11 10^3/uL (0-0.01); ADD DIFF? YES; ADD MORPH? YES; ADD SCAN? NO; ATYPICAL LYMPHOCYTE FLAG 50 (0-99); FRAGMENT RBC FLAG 40 (0-99); HEMATOCRIT 26.8 % (38.0-47.0); HEMOGLOBIN 8.6 g/dL (12.6-16.3); LEFT SHIFT FLG 80 (0-99); LIPEMIA HEMOLYSIS FLAG 80 (0-99); MEAN CELL HEMOGLOBIN CONCENTR. 32.1 g/dL (32.4-36.7); MEAN CELL VOLUME 93.4 fL (81.5-99.8); MEAN PLATELET VOLUME 11.7 fL (8.7-11.7); NRBC-AUTO% 0.6 % (0.0-0.2); PLATELET CLUMPS FLAG 0 (0-99); PLATELET COUNT 170 10^3/uL (150-400); RED BLOOD CELL COUNT 2.87 10^6/uL (4.18-5.33)
[2017-02-06 05:49] LABS: RED CELL DISTRIBUTION WIDTH 22.2 % (11.5-15.2)
[2017-02-06 06:53] LABS: HYPOCHROMIA 1+; MICROCYTES 2+
[2017-02-06 06:55] LABS: PLATELET ESTIMATE ADEQUATE (ADEQ); POLYCHROMASIA 2+; TOXIC GRANULATION PRESENT; TOXIC VACUOLIZATION PRESENT
[2017-02-06 06:58] LABS: SCHISTOCYTES 1+
[2017-02-06 08:15] VITALS: BP 152/84; PULSE 120; RESP 18; TEMP 97.5; O2SAT 95
[2017-02-06] MEDS: INSULIN REGULAR HUMAN 100 UNIT/ML SC SCH (08:22)
[2017-02-06] MEDS: GABAPENTIN 300 MG CAP PO SCH (09:48)
[2017-02-06] MEDS: SENNOSIDES/DOCUSATE SODIUM TAB PO SCH (09:48)
[2017-02-06] MEDS: morphINE SR 30 MG TAB PO SCH (09:49)
[2017-02-06] MEDS: PANTOPRAZOLE SODIUM 40 MG TAB PO SCH (09:49)
[2017-02-06] MEDS: VENLAFAXINE HCL 75 MG TAB PO SCH (09:49)
[2017-02-06] MEDS: ENOXAPARIN 80 MG/0.8 ML SYR SC SCH (09:49)
--- NOTE | 2017-02-06 09:53 | PDIAF ---
- Diagnosis Diagnosis: metastatic prostate CA- home w hospice Code Status: Do Not Resuscitate - Medication Management Discharge Medications: Medications to Continue on Transfer Omeprazole 40 mg PO DAILY 03/31/16 [Last Taken 01/31/17] Venlafaxine HCl [Venlafaxine 75MG (*)] 75 mg PO BID 03/31/16 [Last Taken ] Acetaminophen [Tylenol 325mg (*)] 325 mg PO Q6 PRN 01/08/17 [Last Taken 02/01/17 ] Sennosides 8.6 mg PO TID PRN 01/08/17 [Last Taken Unknown] Metoclopramide [Reglan 10 mg tab (*)] 10 mg PO QID PRN 01/25/17 [Last Taken ] Gabapentin [Neurontin 300 MG (*)] 300 mg PO TID #90 cap 02/06/17 [Last Taken Unknown] HYDROmorphone HCL [Dilaudid 2 mg (*)] 2 - 4 mg PO Q4H PRN #120 tab 02/06/17 [ Last Taken Unknown] Metoprolol Tartrate [Lopressor Injection] 2.5 mg IVP Q6HRS PRN #0 inj 02/06/17 [ Last Taken Unknown] Ondansetron Odt [Zofran Odt 4 mg (*)] 8 mg PO Q4PRN PRN #60 tab 02/06/17 [Last Taken Unknown] morphINE SR [MS Contin/Oramorph SR 30 mg (*)] 30 mg PO TID #90 tab 02/06/17 [ Last Taken Unknown] Discharge Medications: Refer to the Discharge Home Medication list for PRN reason. - Orders Services needed: Home Care, Registered Nurse, Certified [id number] Programmer Analyst Home Care Face to Face: I certify that this patient was under my care and that I had the required [id number] encounter meeting the encounter requirements on the discharge day. My findings support the fact that the patient is homebound as defined in CMS Chapter 7 Medicare Benefits Manual 30.1.1, The condition of the patient is such that there exists a normal inability to leave home and consequently, leaving home would require a considerable and taxing effort. Diet Texture: Dysphagia 1 - Pureed, Thin Liquids, Meds Crushed in Puree - Follow Up Care Current Providers and Referrals: Jenny Moon PA [Primary Care Provider] - As per Instructions
--- NOTE | 2017-02-06 17:52 | GDS ---
[f rep st] DISCHARGE SUMMARY DISCHARGE DIAGNOSES: 1. Metastatic pancreatic cancer. 2. Ascending cholangitis status post ERCP with stent in the right biliary system. 3. Cholecystitis status post percutaneous gallbladder drainage. 4. Concern for cholangitis status post percutaneous left-sided percutaneous biliary drain. 5. Pain. 6. Mesenteric vein thrombosis. HOSPITAL COURSE: Please see admission history and physical by Dr. Zulma Tam. The patient pres ented on the afternoon of the with weakness and abdominal pain. At that time noted to have sep sis and cholangitis given her biliary obstruction. At that time, she went fairly urgently to ERCP w ith placement of stent and tubes by Dr. Bora Hazel. The patient continued to have a high leukoc ytosis, and further imaging showed evidence of cholecystitis. The patient had tubes placed as menti oned above. The gallbladder tube revealed a great deal of bile. Subsequently, her white count came down from 25 to 17. During this hospitalization, it was realized that her tumor burden is progressive despite being on c hemotherapy. The patient had a low quality of life and low performance status, and the family ultim ately decided the patient was going to go home with hospice. She goes home with discontinuation of her anticoagulation but continuation of her tubes and pain medicines. /[id number]/MODL
== END 2017-02-06 11:01 | disposition hospice, home (50) | DRG 871 ==
LOC: OBSVTOIN 16:07 → F2N 19:48
PROVIDERS: ADMIT Student in an Organized Health Care Education/Training Program; ATTEND Student in an Organized Health Care Education/Training Program
PROC: 0F798DZ Dilation of Common Bile Duct with Intraluminal Device, Via Natural or Artificial Opening Endoscopic (ICD-10-PCS; principal; 2017-02-01 17:20)
PROC: 30233N1 Transfusion of Nonautologous Red Blood Cells into Peripheral Vein, Percutaneous Approach (ICD-10-PCS; 2017-02-04)
PROC: 0F9430Z Drainage of Gallbladder with Drainage Device, Percutaneous Approach (ICD-10-PCS; 2017-02-05)
PROC: 0F9230Z Drainage of Left Lobe Liver with Drainage Device, Percutaneous Approach (ICD-10-PCS; 2017-02-05)
DX: A41.51 Sepsis due to Escherichia coli [E. coli] (principal); R65.20 Severe sepsis without septic shock; K83.0 Cholangitis; K83.1 Obstruction of bile duct; C25.9 Malignant neoplasm of pancreas, unspecified; C78.7 Secondary malignant neoplasm of liver and intrahepatic bile duct; G93.41 Metabolic encephalopathy; D64.9 Anemia, unspecified; N39.0 Urinary tract infection, site not specified; E11.649 Type 2 diabetes mellitus with hypoglycemia without coma; G47.33 Obstructive sleep apnea (adult) (pediatric); G20 Parkinson's disease; K59.03 Drug induced constipation; T40.605A Adverse effect of unspecified narcotics, initial encounter; I81 Portal vein thrombosis; K81.9 Cholecystitis, unspecified; Z96.652 Presence of left artificial knee joint; Z79.4 Long term (current) use of insulin; Z87.81 Personal history of (healed) traumatic fracture; Z51.5 Encounter for palliative care
CPT/HCPCS: 92526-GN; 92610-GN; 96365; 97162-GP; 97165-GO; C1729; C1769; C2625; G8987-GO-CN; G8988-GO-CK; J0330; J0696; J1100; J1170; J1335; J1610; J1644; J1650; J1885; J2405; J2704; J3010; P9016; P9017; Q9961; Q9967